=== PATIENT | male | born 1965 | race Caucasian/White ===

== ENCOUNTER 2019-01-21 19:31 | Inpatient (IN) | payer SELFPAY ==
[2019-01-21] VITALS (10 sets, daily range): BP systolic 89–148; BP diastolic 50–66; PULSE 85–98; RESP 16–24; TEMP 37.4–39.9; O2SAT 92–96; BMI 39.9
--- NOTE | 2019-01-21 19:54 | DI.US.S_ITS ---
PROCEDURE: US PERIPH VENOUS LOW EXTREM LT INDICATIONS: EDEMA, ERYTHEMA, PAIN TECHNIQUE: Real-time imaging, as well as color and pulse Doppler interrogation, were performed of the lower extremity deep veins from the inguinal ligament to the popliteal fossa. COMPARISON: None. FINDINGS: The deep veins are normally compressible, and free of intraluminal thrombus. Color and pulse Doppler demonstrate normal phasic intraluminal flow. There is normal augmentation response to distal compression maneuver. IMPRESSION: No deep vein thrombosis of the left lower extremity. Dictated by: Marisela Jones M.D. on 01/21/2019 at 20:54 Approved by: Marisela Jones M.D. on 01/21/2019 at 20:54
[2019-01-21] MEDS: SODIUM CHLORIDE 0.9% 1,000 ML 1000 ML IV ×2 (20:18→21:27)
[2019-01-21] MEDS: KETOROLAC 60 MG/2 ML VIAL 15 MG IV (20:19)
[2019-01-21] MEDS: VANCOMYCIN 2,000 MG in SODIUM CHLORIDE 0.9% 500 ML 250 ML IV (20:19)
[2019-01-21 20:20] LABS: Add Manual Diff / Slide Review NO; Basophils Absolute Auto 0 /uL (0-100); Basophils Percent Auto 0.1 % (0-2); Eosinophils Absolute Auto 0 /uL (0-450); Hematocrit 39.7 % (41-53); Hemoglobin 13.6 g/dL (13.5-17.5); Lymphocytes Absolute Auto 500 /uL (1100-4500); Lymphocytes Percent Auto 2.4 % (25-40); Mean Corpuscular HGB Conc 34.2 % (30-36); Mean Corpuscular Volume 96.3 fL (80-100); Monocytes Absolute Auto 600 /uL (0-900); Monocytes Percent Auto 2.8 % (3-14); Neutrophils Absolute Auto 19200 /uL (1500-7000); Neutrophils Percent Auto 94.7 % (50-75); Platelet Count 164 X10^3/uL (150-400); Red Blood Cell Count 4.12 X10^6/uL (4.5-5.9); Red Cell Distribution Width 14.2 % (11.6-14.8); White Blood Cell Count 20.3 X10^3/uL (4.5-11.0)
[2019-01-21 20:31] LABS: Alanine Aminotransferase 11 IU/L (21-72); Albumin 4.2 g/dL (3.5-5.0); Albumin Globulin Ratio 1.3 (1.0-2.8); Alkaline Phosphatase 69 U/L (38-126); Aspartate Aminotransferase 43 IU/L (17-59); BUN Creatinine Ratio 20.7 (6-22); Blood Urea Nitrogen 29 mg/dL (9-20); Calcium 8.6 mg/dL (8.4-10.2); Carbon Dioxide 24 mmol/L (22-32); Chloride 92 mmol/L (98-107); Estimated Glomerular Filt Rate 53.2 mL/min (>60); Globulin 3.3 g/dL (1.7-4.1); Glucose 174 mg/dL (70-100); HEMOLYSIS 27 (0-50); Lactate (Lactic Acid) 2.2 mmol/L (0.7-2.1); Potassium 3.8 mmol/L (3.4-5.1); Sodium 128 mmol/L (137-145); Total Protein 7.5 g/dL (6.3-8.2)
[2019-01-21 20:48] LABS: Procalcitonin 5.51 ng/mL (<0.5)
[2019-01-21 22:46] LABS: Appearance Urine UA CLEAR; Bilirubin Urine UA NEGATIVE (NEGATIVE); Color Urine UA YELLOW; Glucose Urine UA NEGATIVE (Negative); Ketones Urine UA NEGATIVE (NEGATIVE); Leukocyte Esterase Urine UA NEGATIVE (NEGATIVE); Nitrite Urine UA NEGATIVE (Negative); Occult Blood Urine UA 3+ (Negative); Protein Urine UA 1+ (Negative); Urobilinogen Urine UA 0.2 E.U./dL (0.2); pH Urine UA 5.5 (4.5-8.0)
--- NOTE | 2019-01-21 23:00 | PC.NURSE ---
Addendum entered by Jeannette Garcia R.N. 01/21/19 23:14: Discussed with Dr. Warren order for POC urinalysis from E.R. Verbal order to obtain urinalysis upon arrival to floor. Pt provided with ice water per Dr. Warren. to see patient. Pt currently resting quietly in bed with eyes closed. No signs of distress or discomfort. Original Note: Pt to room 212 from E.R. awake, alert, conversant and febrile. Warm to touch and flushed. Able to ambulate from stretcher to bed independently. States pain to LLE increases with limb in dependent position. LLE elevated on pillows x 2 while in bed. Normal saline bolus completed as begun in E.R. Vancomycin infusing as ordered without difficulty. Tele in place and ICU notified per motor coach supervisorDuyen. Continuous pulse oximeter in place. Pt's wallet secured in safe with pt permission and understanding. Clothing in belongings bag with one dime and two pennies in jeans pocket. Awaiting further orders per Dr. Warren who per motor coach supervisor report is in ICU at the present time. First void collected and sent to lab pending further orders.
[2019-01-21 23:04] LABS: RBC Urine 10-30/HPF (0-5/HPF); Squamous Epithelial Cell Urine 0-1 /HPF; WBC Urine 0-1/HPF (0-5/HPF)
[2019-01-21 23:05] LABS: Bacteria Urine Few (2-10); Culture Indicated Urine Cult Not Indicated
--- NOTE | 2019-01-21 23:20 | ED.FEVER ---
HPI - Fever General Chief Complaint: Fever Stated Complaint: LEFT LEG INFECTION Time Seen by Provider: 01/21/19 19:35 Source: patient Mode of arrival: ambulatory Limitations: no limitations History of Present Illness HPI Narrative: 53-year-old nonsmoker with history of TIA and prior cellulitis presents with 2 days of worsening left lower extremity swelling, pain and redness. It started at his left ankle and now extends all the way to his groin. He has had fever as high as 103. He denies any shaking but has had chills. He has had no chest pain, shortness of breath nor nausea. He is not dizzy nor weak or lightheaded. complaint: fever Onset (ago): hour(s) Maximum Temperature: 103 F Temperature Source: oral Associated symptoms: chills Relieving factors: nothing Exacerbating factors: other Treatments prior to arrival fever: acetaminophen and ibuprofen Related Data Home Medications Medication Instructions Recorded Confirmed No Known Home Medications 01/21/19 01/21/19 Allergies Allergy/AdvReac Type Severity Reaction Status Date / Time No Known Drug Allergies Allergy Verified 01/21/19 19:45 Review of Systems Constitutional Reports chills, Reports fever(s), Denies lethargy and Denies weakness Eyes Denies change in vision, Denies eye discharge, Denies irritation and Denies loss of vision ENT Ears, Nose, Mouth, and Throat: Denies change in voice, Denies neck pain and Denies sore throat Cardiovascular Denies chest pain, Denies irregular heart rhythm, Denies lightheadedness, Denies palpitations, Denies dyspnea, Denies dyspnea on exertion and Denies orthopnea Respiratory Denies cough, Denies dyspnea, Denies dyspnea on exertion and Denies wheezing Gastrointestinal Gastrointestinal: Denies abdominal pain, Denies change in bowel habits, Denies diarrhea, Denies nausea and Denies vomiting Genitourinary Denies hematuria, Denies flank pain, Denies urinary incontinence and Denies urinary urgency Musculoskeletal Denies neck pain Integumentary/Breasts Denies pruritus, Reports erythema, Denies rash, Reports skin pain, Reports skin swelling and Denies wounds Neurologic Denies confusion, Denies loss of vision and Denies weakness Psychiatric Denies anxiety, Denies confusion, Denies depression, Denies homicidal ideation and Denies suicidal ideation Endocrine Denies palpitations Hematologic/Lymphatic Denies easy bruising Allergic/Immunologic Denies wheezing PFSH Social History household members: children Smoking Status: Never smoker alcohol intake: current Social History household members: children Smoking Status: Never smoker alcohol intake: current Exam Narrative Exam Narrative: GENERAL: This is a well-nourished, well-developed patient, in mild distress. Obviously uncomfortable HEAD: Atraumatic. Normocephalic. No temporal or scalp tenderness. EYES: Pupils equal round and reactive. Extraocular motions intact. No scleral icterus. No injection or drainage. ENT: Nose without bleeding, purulent drainage or septal hematoma. Throat without erythema, tonsillar hypertrophy or exudate. Uvula midline. Airway patent. NECK: Trachea midline. No JVD or lymphadenopathy. Supple, nontender, no meningeal signs. CARDIOVASCULAR: Regular rate and rhythm without murmurs, gallops, or rubs. RESPIRATORY: Clear to auscultation. Breath sounds equal bilaterally. No wheezes, rales, or rhonchi. GASTROINTESTINAL: Abdomen soft, non-tender, nondistended. No hepato-splenomegaly, or palpable masses. No guarding. EXTREMITIES: marked erythema, swelling and tenderness starting with dorsum of foot including circumferentially below the knee and medial thigh. there seems to be what might be a small skin break on the medial aspect of the ankle BACK: Nontender without deformity or crepitance. No flank tenderness. NEURO: AOx3. SKIN: warm pink and dry other than left extremity which is erythematous, see extremity exam above Initial Vital Signs Initial Vital Signs: Vital Signs Temperature 103.9 F H 01/21/19 19:42 Pulse Rate 98 H 01/21/19 19:42 Respiratory Rate 24 01/21/19 19:42 Blood Pressure 136/66 01/21/19 19:42 Pulse Oximetry 96 01/21/19 19:42 Course Orders Ordered: ED Orders 01/21/19 19:54 US periph venous low extrem lt Stat 01/21/19 20:00 Complete Blood Count AUTO DIFF Stat Comprehensive Metabolic Panel Stat Lactate (Lactic Acid) Stat Procalcitonin Stat 01/21/19 20:20 Blood Culture Stat 01/21/19 22:27 Consult to Machinist Linotype Routine 01/21/19 22:30 Urinalysis and Microscopic Routine 01/21/19 23:12 Education, smoking cessation ONGOING 01/21/19 23:18 Urinalysis and Microscopic Urgent 01/22/19 05:00 Basic Metabolic Panel Routine Complete Blood Count AUTO DIFF Routine Acetaminophen (Tylenol) 650 mg PO Q4HR PRN PRN Reason: As Needed for Fever/Mild Pain Enoxaparin Sodium (Lovenox) 30 mg SUBCUT DAILY [facility] Levofloxacin (Levaquin) 500 mg in 100 mls @ 100 mls/hr IV NOW ONE Stop: 01/22/19 00:13 Sodium Chloride (Normal Saline 0.9%) 1,000 mls @ 125 mls/hr IV CONT CHRIS Vancomycin HCl (Vancomycin Per Pharmacy) 1 request MISC NOW ONE Stop: 01/21/19 23:16 Discontinued Medications Sodium Chloride (Normal Saline 0.9%) 1,000 mls @ 1,000 mls/hr IV BOLUS ONE Stop: 01/21/19 20:55 Last Admin: 01/21/19 20:18 Dose: 1,000 mls/hr Vancomycin HCl 2,000 mg/ (Sodium Chloride) 500 mls @ 250 mls/hr IV NOW ONE Stop: 01/21/19 19:55 Last Admin: 01/21/19 20:19 Dose: 250 mls/hr Sodium Chloride (Normal Saline 0.9%) 1,000 mls @ 1,000 mls/hr IV BOLUS ONE Stop: 01/21/19 22:20 Last Admin: 01/21/19 21:27 Dose: 1,000 mls/hr Ketorolac Tromethamine (Toradol) 15 mg IV NOW ONE Stop: 01/21/19 19:55 Last Admin: 01/21/19 20:19 Dose: 15 mg Consultations Consultation #1: Dr. Warren happy to accept patient on hospitalist service Vital Signs - 8 hr 01/21/19 19:42 01/21/19 19:52 01/21/19 20:19 Temperature 103.9 F H 103.9 F H Pulse Rate 98 H 96 H Respiratory Rate 24 22 Blood Pressure 136/66 Blood Pressure [Left Arm] 148/65 H Pulse Oximetry 96 95 01/21/19 20:30 01/21/19 21:07 01/21/19 21:15 Temperature 102.1 F H Pulse Rate 89 87 87 Respiratory Rate 16 23 18 Blood Pressure Blood Pressure [Left Arm] 111/51 L 89/51 L 104/50 L Pulse Oximetry 95 92 95 01/21/19 21:16 01/21/19 21:30 01/21/19 22:20 Temperature 102.1 F H 101.3 F H Pulse Rate 86 86 Respiratory Rate 24 18 Blood Pressure 109/59 L Blood Pressure [Left Arm] 102/54 L Pulse Oximetry 93 95 MDM - Fever Medical Records Attestation: I reviewed the patient's medical records. Lab Data Result diagrams: 01/21/19 20:00 01/21/19 20:00 Lab Results 01/21/19 01/21/19 01/21/19 Range/Units 20:00 20:00 20:00 WBC 20.3 H (4.5-11.0) X10^3/uL RBC 4.12 L (4.5-5.9) X10^6/uL Hgb 13.6 (13.5-17.5) g/dL Hct 39.7 L (41-53) % MCV 96.3 (80-100) fL MCH 33.0 (26-34) PG MCHC 34.2 (30-36) % RDW 14.2 (11.6-14.8) % Plt Count 164 (150-400) X10^3/uL Neut % (Auto) 94.7 H (50-75) % Lymph % (Auto) 2.4 L (25-40) % [place] % (Auto) 2.8 L (3-14) % Eos % (Auto) 0.0 L (2-4) % Baso % (Auto) 0.1 (0-2) % Neut # (Auto) 23915 H (6438-5857) /uL Lymph # (Auto) 500 L (0206-5232) /uL [place] # (Auto) 600 (0-900) /uL Eos # (Auto) 0 (0-450) /uL Baso # (Auto) 0 (0-100) /uL Sodium 128 L (137-145) mmol/L Potassium 3.8 (3.4-5.1) mmol/L Chloride 92 L (98-107) mmol/L Carbon Dioxide 24 (22-32) mmol/L BUN 29 H (9-20) mg/dL Creatinine 1.40 H (0.66-1.25) mg/dL Estimated GFR 53.2 L (>60) mL/min BUN/Creatinine Ratio 20.7 (6-22) Glucose 174 H (70-100) mg/dL Lactate (0.7-2.1) mmol/L Calcium 8.6 (8.4-10.2) mg/dL Total Bilirubin 2.0 H (0.2-1.3) mg/dL AST 43 (17-59) IU/L ALT 11 L (21-72) IU/L Alkaline Phosphatase 69 (38-126) U/L Total Protein 7.5 (6.3-8.2) g/dL Albumin 4.2 (3.5-5.0) g/dL Globulin 3.3 (1.7-4.1) g/dL Albumin/Globulin Ratio 1.3 (1.0-2.8) Procalcitonin 5.51 H (<0.5) ng/mL Urine Color Urine Appearance Urine pH (4.5-8.0) Ur Specific [place] (1.000-1.035) Urine Protein (Negative) Urine Glucose (UA) (Negative) g/dL Urine Ketones (NEGATIVE) Urine Occult Blood (Negative) Urine Nitrate (Negative) Urine Bilirubin (NEGATIVE) Urine Urobilinogen (0.2) E.U./dL Ur Leukocyte Esterase (NEGATIVE) Urine RBC (0-5/HPF) Urine WBC (0-5/HPF) Ur Squamous Epith Cells Urine Bacteria (None) Ur Culture Indicated? 01/21/19 01/21/19 Range/Units 20:00 22:30 WBC (4.5-11.0) X10^3/uL RBC (4.5-5.9) X10^6/uL Hgb (13.5-17.5) g/dL Hct (41-53) % MCV (80-100) fL MCH (26-34) PG MCHC (30-36) % RDW (11.6-14.8) % Plt Count (150-400) X10^3/uL Neut % (Auto) (50-75) % Lymph % (Auto) (25-40) % [place] % (Auto) (3-14) % Eos % (Auto) (2-4) % Baso % (Auto) (0-2) % Neut # (Auto) (7481-9769) /uL Lymph # (Auto) (3755-3428) /uL [place]ax # (Auto) (0-900) /uL Eos # (Auto) (0-450) /uL Baso # (Auto) (0-100) /uL Sodium (137-145) mmol/L Potassium (3.4-5.1) mmol/L Chloride (98-107) mmol/L Carbon Dioxide (22-32) mmol/L BUN (9-20) mg/dL Creatinine (0.66-1.25) mg/dL Estimated GFR (>60) mL/min BUN/Creatinine Ratio (6-22) Glucose (70-100) mg/dL Lactate 2.2 H (0.7-2.1) mmol/L Calcium (8.4-10.2) mg/dL Total Bilirubin (0.2-1.3) mg/dL AST (17-59) IU/L ALT (21-72) IU/L Alkaline Phosphatase (38-126) U/L Total Protein (6.3-8.2) g/dL Albumin (3.5-5.0) g/dL Globulin (1.7-4.1) g/dL Albumin/Globulin Ratio (1.0-2.8) Procalcitonin (<0.5) ng/mL Urine Color Yellow Urine Appearance Clear Urine pH 5.5 (4.5-8.0) Ur Specific [place] 1.010 (1.000-1.035) Urine Protein 1+ H (Negative) Urine Glucose (UA) Negative (Negative) g/dL Urine Ketones Negative (NEGATIVE) Urine Occult Blood 3+ H (Negative) Urine Nitrate Negative (Negative) Urine Bilirubin Negative (NEGATIVE) Urine Urobilinogen 0.2 (0.2) E.U./dL Ur Leukocyte Esterase Negative (NEGATIVE) Urine RBC 10-30/hpf H (0-5/HPF) Urine WBC 0-1/hpf (0-5/HPF) Ur Squamous Epith Cells 0-1 /hpf Urine Bacteria Few (2-10) H (None) Ur Culture Indicated? Cult not indicated Imaging Data Venous US: Radiologist's impression: [address] [id number] Ultrasound Report Signed Patient: Justin Birch [facility]#: [id number] : 1965Acct:[id number] Age/Sex: 53 / MDate of Service: 01/21/19 Loc: ED Accession Number: [id number] Procedure: US periph venous low extrem lt Ordering Provider: Jose D Lopze D.O. PROCEDURE: US PERIPH VENOUS LOW EXTREM LT INDICATIONS: EDEMA, ERYTHEMA, PAIN TECHNIQUE: Real-time imaging, as well as color and pulse Doppler interrogation, were performed of the lower extremity deep veins from the inguinal ligament to the popliteal fossa. COMPARISON: None. FINDINGS: The deep veins are normally compressible, and free of intraluminal thrombus. Color and pulse Doppler demonstrate normal phasic intraluminal flow. There is normal augmentation response to distal compression maneuver. IMPRESSION: No deep vein thrombosis of the left lower extremity. Dictated by: Marisela Jones M.D. on 01/21/2019 at 20:54 Approved by: Marisela Jones M.D. on 01/21/2019 at 20:54 [facility] Narrative Medical decision making narrative: patient has rapidly worsening lower extremity cellulitis involving most of his left leg. He has significantly elevated white count and lactate of 2.2. Patient will require IV antibiotics and likely a few days worth of treatment and stabilization Discharge Plan Departure Patient Disposition: Admitted As Inpatient Clinical Impression: Cellulitis Qualifiers: Site of cellulitis: extremity Site of cellulitis of extremity: lower extremity Laterality: left Qualified Code(s): L03.116 - Cellulitis of left lower limb Discharge Date/Time: 01/21/19 22:00 Interventions: ED Discharge Assessment Last Done: 01/21/19 22:03 Admit Date/Time: 01/21/19 21:40 Admit Provider: Lupe Warren
--- NOTE | 2019-01-21 23:24 | ED_ITS ---
HPI - Fever General Chief Complaint: Fever Stated Complaint: LEFT LEG INFECTION Time Seen by Provider: 01/21/19 19:35 Source: patient Mode of arrival: ambulatory Limitations: no limitations History of Present Illness HPI Narrative: 53-year-old nonsmoker with history of TIA and prior cellulitis presents with 2 days of worsening left lower extremity swelling, pain and redness. It started at his left ankle and now extends all the way to his groin. He has had fever as high as 103. He denies any shaking but has had chills. He has had no chest pain, shortness of breath nor nausea. He is not dizzy nor weak or lightheaded. complaint: fever Onset (ago): hour(s) Maximum Temperature: 103 F Temperature Source: oral Associated symptoms: chills Relieving factors: nothing Exacerbating factors: other Treatments prior to arrival fever: acetaminophen and ibuprofen Related Data Home Medications Medication Instructions Recorded Confirmed No Known Home Medications 01/21/19 01/21/19 Allergies Allergy/AdvReac Type Severity Reaction Status Date / Time No Known Drug Allergies Allergy Verified 01/21/19 19:45 Review of Systems Constitutional Reports chills, Reports fever(s), Denies lethargy and Denies weakness Eyes Denies change in vision, Denies eye discharge, Denies irritation and Denies loss of vision ENT Ears, Nose, Mouth, and Throat: Denies change in voice, Denies neck pain and Denies sore throat Cardiovascular Denies chest pain, Denies irregular heart rhythm, Denies lightheadedness, Denies palpitations, Denies dyspnea, Denies dyspnea on exertion and Denies orthopnea Respiratory Denies cough, Denies dyspnea, Denies dyspnea on exertion and Denies wheezing Gastrointestinal Gastrointestinal: Denies abdominal pain, Denies change in bowel habits, Denies diarrhea, Denies nausea and Denies vomiting Genitourinary Denies hematuria, Denies flank pain, Denies urinary incontinence and Denies urinary urgency Musculoskeletal Denies neck pain Integumentary/Breasts Denies pruritus, Reports erythema, Denies rash, Reports skin pain, Reports skin swelling and Denies wounds Neurologic Denies confusion, Denies loss of vision and Denies weakness Psychiatric Denies anxiety, Denies confusion, Denies depression, Denies homicidal ideation and Denies suicidal ideation Endocrine Denies palpitations Hematologic/Lymphatic Denies easy bruising Allergic/Immunologic Denies wheezing PFSH Social History household members: children Smoking Status: Never smoker alcohol intake: current Social History household members: children Smoking Status: Never smoker alcohol intake: current Exam Narrative Exam Narrative: GENERAL: This is a well-nourished, well-developed patient, in mild distress. Obviously uncomfortable HEAD: Atraumatic. Normocephalic. No temporal or scalp tenderness. EYES: Pupils equal round and reactive. Extraocular motions intact. No scleral icterus. No injection or drainage. ENT: Nose without bleeding, purulent drainage or septal hematoma. Throat without erythema, tonsillar hypertrophy or exudate. Uvula midline. Airway patent. NECK: Trachea midline. No JVD or lymphadenopathy. Supple, nontender, no meningeal signs. CARDIOVASCULAR: Regular rate and rhythm without murmurs, gallops, or rubs. RESPIRATORY: Clear to auscultation. Breath sounds equal bilaterally. No wheezes, rales, or rhonchi. GASTROINTESTINAL: Abdomen soft, non-tender, nondistended. No hepato- splenomegaly, or palpable masses. No guarding. EXTREMITIES: marked erythema, swelling and tenderness starting with dorsum of foot including circumferentially below the knee and medial thigh. there seems to be what might be a small skin break on the medial aspect of the ankle BACK: Nontender without deformity or crepitance. No flank tenderness. NEURO: AOx3. SKIN: warm pink and dry other than left extremity which is erythematous, see extremity exam above Initial Vital Signs Initial Vital Signs: Vital Signs Temperature 103.9 F H 01/21/19 19:42 Pulse Rate 98 H 01/21/19 19:42 Respiratory Rate 24 01/21/19 19:42 Blood Pressure 136/66 01/21/19 19:42 Pulse Oximetry 96 01/21/19 19:42 Course Orders Ordered: ED Orders 01/21/19 19:54 US periph venous low extrem lt Stat 01/21/19 20:00 Complete Blood Count AUTO DIFF Stat Comprehensive Metabolic Panel Stat Lactate (Lactic Acid) Stat Procalcitonin Stat 01/21/19 20:20 Blood Culture Stat 01/21/19 22:27 Consult to Wiring Technician Routine 01/21/19 22:30 Urinalysis and Microscopic Routine 01/21/19 23:12 Education, smoking cessation ONGOING 01/21/19 23:18 Urinalysis and Microscopic Urgent 01/22/19 05:00 Basic Metabolic Panel Routine Complete Blood Count AUTO DIFF Routine Acetaminophen (Tylenol) 650 mg PO Q4HR PRN PRN Reason: As Needed for Fever/Mild Pain Enoxaparin Sodium (Lovenox) 30 mg SUBCUT DAILY [facility] Levofloxacin (Levaquin) 500 mg in 100 mls @ 100 mls/hr IV NOW ONE Stop: 01/22/19 00:13 Sodium Chloride (Normal Saline 0.9%) 1,000 mls @ 125 mls/hr IV CONT CHRIS Vancomycin HCl (Vancomycin Per Pharmacy) 1 request MISC NOW ONE Stop: 01/21/19 23:16 Discontinued Medications Sodium Chloride (Normal Saline 0.9%) 1,000 mls @ 1,000 mls/hr IV BOLUS ONE Stop: 01/21/19 20:55 Last Admin: 01/21/19 20:18 Dose: 1,000 mls/hr Vancomycin HCl 2,000 mg/ (Sodium Chloride) 500 mls @ 250 mls/hr IV NOW ONE Stop: 01/21/19 19:55 Last Admin: 01/21/19 20:19 Dose: 250 mls/hr Sodium Chloride (Normal Saline 0.9%) 1,000 mls @ 1,000 mls/hr IV BOLUS ONE Stop: 01/21/19 22:20 Last Admin: 01/21/19 21:27 Dose: 1,000 mls/hr Ketorolac Tromethamine (Toradol) 15 mg IV NOW ONE Stop: 01/21/19 19:55 Last Admin: 01/21/19 20:19 Dose: 15 mg Consultations Consultation #1: Dr. Warren happy to accept patient on hospitalist service Vital Signs - 8 hr 01/21/19 19:42 01/21/19 19:52 01/21/19 20:19 Temperature 103.9 F H 103.9 F H Pulse Rate 98 H 96 H Respiratory Rate 24 22 Blood Pressure 136/66 Blood Pressure [Left Arm] 148/65 H Pulse Oximetry 96 95 01/21/19 20:30 01/21/19 21:07 01/21/19 21:15 Temperature 102.1 F H Pulse Rate 89 87 87 Respiratory Rate 16 23 18 Blood Pressure Blood Pressure [Left Arm] 111/51 L 89/51 L 104/50 L Pulse Oximetry 95 92 95 01/21/19 21:16 01/21/19 21:30 01/21/19 22:20 Temperature 102.1 F H 101.3 F H Pulse Rate 86 86 Respiratory Rate 24 18 Blood Pressure 109/59 L Blood Pressure [Left Arm] 102/54 L Pulse Oximetry 93 95 MDM - Fever Medical Records Attestation: I reviewed the patient's medical records. Lab Data Result diagrams: 01/21/19 20:00 01/21/19 20:00 Lab Results 01/21/19 01/21/19 01/21/19 Range/Units 20:00 20:00 20:00 WBC 20.3 H (4.5-11.0) X10^3/uL RBC 4.12 L (4.5-5.9) X10^6/uL Hgb 13.6 (13.5-17.5) g/dL Hct 39.7 L (41-53) % MCV 96.3 (80-100) fL MCH 33.0 (26-34) PG MCHC 34.2 (30-36) % RDW 14.2 (11.6-14.8) % Plt Count 164 (150-400) X10^3/uL Neut % (Auto) 94.7 H (50-75) % Lymph % (Auto) 2.4 L (25-40) % [place] % (Auto) 2.8 L (3-14) % Eos % (Auto) 0.0 L (2-4) % Baso % (Auto) 0.1 (0-2) % Neut # (Auto) 18717 H (9039-5885) /uL Lymph # (Auto) 500 L (4434-3121) /uL [place] # (Auto) 600 (0-900) /uL Eos # (Auto) 0 (0-450) /uL Baso # (Auto) 0 (0-100) /uL Sodium 128 L (137-145) mmol/L Potassium 3.8 (3.4-5.1) mmol/L Chloride 92 L (98-107) mmol/L Carbon Dioxide 24 (22-32) mmol/L BUN 29 H (9-20) mg/dL Creatinine 1.40 H (0.66-1.25) mg/dL Estimated GFR 53.2 L (>60) mL/min BUN/Creatinine Ratio 20.7 (6-22) Glucose 174 H (70-100) mg/dL Lactate (0.7-2.1) mmol/L Calcium 8.6 (8.4-10.2) mg/dL Total Bilirubin 2.0 H (0.2-1.3) mg/dL AST 43 (17-59) IU/L ALT 11 L (21-72) IU/L Alkaline Phosphatase 69 (38-126) U/L Total Protein 7.5 (6.3-8.2) g/dL Albumin 4.2 (3.5-5.0) g/dL Globulin 3.3 (1.7-4.1) g/dL Albumin/Globulin Ratio 1.3 (1.0-2.8) Procalcitonin 5.51 H (<0.5) ng/mL Urine Color Urine Appearance Urine pH (4.5-8.0) Ur Specific [place] (1.000-1.035) Urine Protein (Negative) Urine Glucose (UA) (Negative) g/dL Urine Ketones (NEGATIVE) Urine Occult Blood (Negative) Urine Nitrate (Negative) Urine Bilirubin (NEGATIVE) Urine Urobilinogen (0.2) E.U./dL Ur Leukocyte Esterase (NEGATIVE) Urine RBC (0-5/HPF) Urine WBC (0-5/HPF) Ur Squamous Epith Cells Urine Bacteria (None) Ur Culture Indicated? 01/21/19 01/21/19 Range/Units 20:00 22:30 WBC (4.5-11.0) X10^3/uL RBC (4.5-5.9) X10^6/uL Hgb (13.5-17.5) g/dL Hct (41-53) % MCV (80-100) fL MCH (26-34) PG MCHC (30-36) % RDW (11.6-14.8) % Plt Count (150-400) X10^3/uL Neut % (Auto) (50-75) % Lymph % (Auto) (25-40) % [place] % (Auto) (3-14) % Eos % (Auto) (2-4) % Baso % (Auto) (0-2) % Neut # (Auto) (4391-3108) /uL Lymph # (Auto) (1887-0781) /uL [place] # (Auto) (0-900) /uL Eos # (Auto) (0-450) /uL Baso # (Auto) (0-100) /uL Sodium (137-145) mmol/L Potassium (3.4-5.1) mmol/L Chloride (98-107) mmol/L Carbon Dioxide (22-32) mmol/L BUN (9-20) mg/dL Creatinine (0.66-1.25) mg/dL Estimated GFR (>60) mL/min BUN/Creatinine Ratio (6-22) Glucose (70-100) mg/dL Lactate 2.2 H (0.7-2.1) mmol/L Calcium (8.4-10.2) mg/dL Total Bilirubin (0.2-1.3) mg/dL AST (17-59) IU/L ALT (21-72) IU/L Alkaline Phosphatase (38-126) U/L Total Protein (6.3-8.2) g/dL Albumin (3.5-5.0) g/dL Globulin (1.7-4.1) g/dL Albumin/Globulin Ratio (1.0-2.8) Procalcitonin (<0.5) ng/mL Urine Color Yellow Urine Appearance Clear Urine pH 5.5 (4.5-8.0) Ur Specific [place] 1.010 (1.000-1.035) Urine Protein 1+ H (Negative) Urine Glucose (UA) Negative (Negative) g/dL Urine Ketones Negative (NEGATIVE) Urine Occult Blood 3+ H (Negative) Urine Nitrate Negative (Negative) Urine Bilirubin Negative (NEGATIVE) Urine Urobilinogen 0.2 (0.2) E.U./dL Ur Leukocyte Esterase Negative (NEGATIVE) Urine RBC 10-30/hpf H (0-5/HPF) Urine WBC 0-1/hpf (0-5/HPF) Ur Squamous Epith Cells 0-1 /hpf Urine Bacteria Few (2-10) H (None) Ur Culture Indicated? Cult not indicated Imaging Data Venous US: Radiologist's impression: [address] [id number] Ultrasound Report Signed Patient: Justin Birch [facility]#: [id number] : 1965Acct:[id number] Age/Sex: 53 / MDate of Service: 01/21/19 Loc: ED Accession Number: [id number] Procedure: US periph venous low extrem lt Ordering Provider: Jose D Lopez D.O. PROCEDURE: US PERIPH VENOUS LOW EXTREM LT INDICATIONS: EDEMA, ERYTHEMA, PAIN TECHNIQUE: Real-time imaging, as well as color and pulse Doppler interrogation, were performed of the lower extremity deep veins from the inguinal ligament to the popliteal fossa. COMPARISON: None. FINDINGS: The deep veins are normally compressible, and free of intraluminal thrombus. Color and pulse Doppler demonstrate normal phasic intraluminal flow. There is normal augmentation response to distal compression maneuver. IMPRESSION: No deep vein thrombosis of the left lower extremity. Dictated by: Marisela Jones M.D. on 01/21/2019 at 20:54 Approved by: Marisela Jones M.D. on 01/21/2019 at 20:54 [facility] Narrative Medical decision making narrative: patient has rapidly worsening lower extremity cellulitis involving most of his left leg. He has significantly elevated white count and lactate of 2.2. Patient will require IV antibiotics and likely a few days worth of treatment and stabilization Discharge Plan Departure Patient Disposition: Admitted As Inpatient Clinical Impression: Cellulitis Qualifiers: Site of cellulitis: extremity Site of cellulitis of extremity: lower extremity Laterality: left Qualified Code(s): L03.116 - Cellulitis of left lower limb Discharge Date/Time: 01/21/19 22:00 Interventions: ED Discharge Assessment Last Done: 01/21/19 22:03 Admit Date/Time: 01/21/19 21:40 Admit Provider: Lupe Warren
--- NOTE | 2019-01-21 23:28 | PM.HP.1 ---
History of Present Illness Date Patient Seen: 01/21/19 Time Patient Seen: 11:20 Chief complaint: LEFT LEG INFECTION Narrative: 53-year-old former patient of Dr. Oliveros who presented to the [facility] Emergency room this evening for left foot and lower leg pain and swelling, fever and chills for 2 days. He started noticing a skin breakdown on the medial aspect of left foot about 2 days ago. He has mild discomfort in the area. He also noticed redness and swelling in the surrounding soft tissue. He also has been having fevers and chills. His temp went up to 103. Today the redness and swelling progressed to his left lower leg. He was diagnosed with left lower extremity cellulitis. He received IV vancomycin and was admitted to the medicine floor for left lower extremity cellulitis. Patient History Medical History Cellulitis and abscess of foot (Acute) Mandible fracture (Acute) Social History household members: children Smoking Status: Never smoker alcohol intake: current Family & Social History Social History: household members children Prior Living Arrangements House Safety & Behavioral: Feels Safe in Current Yes Environment Been Physically Hurt or No Threatened By a Person Suicidal Ideation Description None Suicide Plan Description No Plan Tobacco & Substance use: Smoking Status Never smoker alcohol intake current alcohol intake frequency 3 or more drinks per week Substance Use Type does not use Meds Home Medications Medication Instructions Recorded Confirmed Type No Known Home Medications 01/21/19 01/21/19 History Allergies Allergy/AdvReac Type Severity Reaction Status Date / Time No Known Drug Allergies Allergy Verified 01/21/19 19:45 Review of Systems Constitutional Constitutional: Reports chills and Reports fever(s) Cardiovascular Comments: Denies chest pain Respiratory Comments: Denies cough or shortness of breath Gastrointestinal Comments: Denies abdominal pain Genitourinary Comments: No dysuria Exam Vital Signs (past 8 hours): - 01/21/19 19:42 01/21/19 19:52 01/21/19 20:19 Temperature 103.9 F H 103.9 F H Pulse Rate 98 H 96 H Respiratory Rate 24 22 Blood Pressure 136/66 Blood Pressure [Left Arm] 148/65 H Pulse Oximetry 96 95 01/21/19 20:30 01/21/19 21:07 01/21/19 21:15 Temperature 102.1 F H Pulse Rate 89 87 87 Respiratory Rate 16 23 18 Blood Pressure Blood Pressure [Left Arm] 111/51 L 89/51 L 104/50 L Pulse Oximetry 95 92 95 01/21/19 21:16 01/21/19 21:30 01/21/19 22:20 Temperature 102.1 F H 101.3 F H Pulse Rate 86 86 Respiratory Rate 24 18 Blood Pressure 109/59 L Blood Pressure [Left Arm] 102/54 L Pulse Oximetry 93 95 Oxygen Delivery Method Room Air Narrative Exam Narrative: GENERAL: Well-appearing, well-nourished and in no acute distress. HEENT: Head normocephalic, atraumatic. Eyes pupils equal round NECK: Supple, no JVD, CHEST: Breath sounds equal bilaterally, no wheezes rales or rhonchi. CARDIAC: Regular rate and rhythm without murmurs, rubs or gallops. ABDOMEN: Soft, nontender. Normoactive bowel sounds all 4 quadrants. No guarding or rebound. EXTREMITIES: Left foot has a small open wound on the medial aspect of the left heel. There is erythema and soft tissue swelling on the left foot extending to the left lower leg up to about half of the left lower leg. NEUROLOGICAL: Alert and oriented; Normal muscle strength. SKIN: Warm, dry, no petechiae, Objective Labs Result Diagrams: 01/21/19 20:00 01/21/19 20:00 Labs: Laboratory Results - last 24 hr 01/21/19 01/21/19 01/21/19 20:00 20:00 20:00 WBC 20.3 H RBC 4.12 L Hgb 13.6 Hct 39.7 L MCV 96.3 MCH 33.0 MCHC 34.2 RDW 14.2 Plt Count 164 Neut % (Auto) 94.7 H Lymph % (Auto) 2.4 L [place] % (Auto) 2.8 L Eos % (Auto) 0.0 L Baso % (Auto) 0.1 Neut # (Auto) 13957 H Lymph # (Auto) 500 L [place] # (Auto) 600 Eos # (Auto) 0 Baso # (Auto) 0 Sodium 128 L Potassium 3.8 Chloride 92 L Carbon Dioxide 24 BUN 29 H Creatinine 1.40 H Estimated GFR 53.2 L BUN/Creatinine Ratio 20.7 Glucose 174 H Lactate Calcium 8.6 Total Bilirubin 2.0 H AST 43 ALT 11 L Alkaline Phosphatase 69 Total Protein 7.5 Albumin 4.2 Globulin 3.3 Albumin/Globulin Ratio 1.3 Procalcitonin 5.51 H Urine Color Urine Appearance Urine pH Ur Specific [place] Urine Protein Urine Glucose (UA) Urine Ketones Urine Occult Blood Urine Nitrate Urine Bilirubin Urine Urobilinogen Ur Leukocyte Esterase Urine RBC Urine WBC Ur Squamous Epith Cells Urine Bacteria Ur Culture Indicated? 01/21/19 01/21/19 20:00 22:30 WBC RBC Hgb Hct MCV MCH MCHC RDW Plt Count Neut % (Auto) Lymph % (Auto) [place] % (Auto) Eos % (Auto) Baso % (Auto) Neut # (Auto) Lymph # (Auto) [place] # (Auto) Eos # (Auto) Baso # (Auto) Sodium Potassium Chloride Carbon Dioxide BUN Creatinine Estimated GFR BUN/Creatinine Ratio Glucose Lactate 2.2 H Calcium Total Bilirubin AST ALT Alkaline Phosphatase Total Protein Albumin Globulin Albumin/Globulin Ratio Procalcitonin Urine Color Yellow Urine Appearance Clear Urine pH 5.5 Ur Specific [place] 1.010 Urine Protein 1+ H Urine Glucose (UA) Negative Urine Ketones Negative Urine Occult Blood 3+ H Urine Nitrate Negative Urine Bilirubin Negative Urine Urobilinogen 0.2 Ur Leukocyte Esterase Negative Urine RBC 10-30/hpf H Urine WBC 0-1/hpf Ur Squamous Epith Cells 0-1 /hpf Urine Bacteria Few (2-10) H Ur Culture Indicated? Cult not indicated Assessment & Plan Assessment & Plan narrative: 1. Left lower extremity acute bacterial cellulitis: Continue IV vancomycin. We will also add IV Levaquin for gram-negative coverage. 2. Early sepsis: Patient has fever of 103, tachycardia, leukocytosis with white blood cell count of greater than 20,000, malaise, impaired renal function. We will treat the underlying cause. Continue IV normal saline at 125 cc an hour. 3. Acute kidney injury: His baseline renal function was normal. Creatinine is 1.4 today. Acute kidney injury is likely secondary to sepsis and possible dehydration. We will continue IV hydration. Continue monitor his renal function.
[2019-01-22] VITALS (10 sets, daily range): BP systolic 118–144; BP diastolic 53–78; PULSE 79–90; RESP 16–20; TEMP 36.6–38.6; O2SAT 92–98
[2019-01-22] MEDS: ENOXAPARIN 30 MG/0.3 ML SYRINGE SUBCUT ×2 (00:03→08:33)
[2019-01-22] MEDS: levoFLOXacin 500 MG/100 ML PIGGYBACK 100 MG IV ×2 (00:04→11:41)
[2019-01-22 00:10] LABS: Reflexed Lactate in 2 Hours Y
[2019-01-22 01:34] LABS: Lactate 2HR (Lactic Acid Rflx) 0.8 mmol/L (0.7-2.1)
[2019-01-22] MEDS: SODIUM CHLORIDE 0.9% 1,000 ML 125 ML IV ×2 (03:02→18:00)
[2019-01-22] MEDS: ACETAMINOPHEN 325 MG TABLET 650 MG PO ×3 (03:34→16:08)
[2019-01-22] MEDS: VANCOMYCIN 2,000 MG in SODIUM CHLORIDE 0.9% 500 ML 250 ML IV (04:12)
[2019-01-22 05:47] LABS: Hematocrit 36.2 % (41-53); Hemoglobin 12.1 g/dL (13.5-17.5); Mean Corpuscular HGB Conc 33.5 % (30-36); Mean Corpuscular Hemoglobin 32.6 PG (26-34); Mean Corpuscular Volume 97.2 fL (80-100); Platelet Count 137 X10^3/uL (150-400); Red Blood Cell Count 3.72 X10^6/uL (4.5-5.9); Red Cell Distribution Width 14.2 % (11.6-14.8); White Blood Cell Count 17.5 X10^3/uL (4.5-11.0)
[2019-01-22 05:48] LABS: Add Manual Diff / Slide Review YES
[2019-01-22 05:57] LABS: BUN Creatinine Ratio 21.5 (6-22); Blood Urea Nitrogen 28 mg/dL (9-20); Calcium 7.4 mg/dL (8.4-10.2); Carbon Dioxide 23 mmol/L (22-32); Chloride 99 mmol/L (98-107); Glucose 119 mg/dL (70-100); HEMOLYSIS 38 (0-50); Potassium 3.7 mmol/L (3.4-5.1); Sodium 129 mmol/L (137-145)
[2019-01-22 06:54] LABS: Toxic Granulation Present
[2019-01-22 07:51] LABS: Hemoglobin A1C% w Est Avg Glu 5.4 % (4.0-6.0)
--- NOTE | 2019-01-22 11:07 | PM.PN.1 ---
Subjective Date Patient Seen: 01/22/19 Time Patient Seen: 11:07 Interval history: Seen today to follow up the left leg cellulitis, possible early sepsis, hyperglycemia, hyponatremia, leukocytosis, hyperbilirubinemia. His procalcitonin was very high at 5.51. His white blood count has come down from 20.3 to 17.5. His bilirubin is high at 2.0. He has received vancomycin and Levaquin which will be extended. His temperature was 101.1?. Exam Vital Signs (past 8 hours): - 01/22/19 03:12 01/22/19 03:34 01/22/19 05:00 Temperature 101.4 F H 101.4 F H 101.1 F H Pulse Rate 86 86 Respiratory Rate 16 16 Blood Pressure 122/65 122/65 Pulse Oximetry 97 97 01/22/19 08:25 01/22/19 08:28 Temperature 98.8 F Pulse Rate 86 Respiratory Rate 17 Blood Pressure 121/53 L Pulse Oximetry 97 98 Oxygen Delivery Method Room Air Oxygen Flow Rate 0 Narrative Exam Narrative: He is alert, oriented x3, and in no apparent distress. Heart is regular rate and rhythm without murmur. Lungs are clear to auscultation bilaterally. There is no ankle edema. There is a healing burn scab on the PIP knuckle of the left index finger. The left leg and foot is diffusely swollen and pink with a purple area and a scab on the back of the heel where the infection appears to have started. Objective Labs Result Diagrams: 01/22/19 05:25 01/22/19 05:25 Labs: Laboratory Results - last 24 hr 01/21/19 01/21/19 01/21/19 20:00 20:00 20:00 WBC 20.3 H RBC 4.12 L Hgb 13.6 Hct 39.7 L MCV 96.3 MCH 33.0 MCHC 34.2 RDW 14.2 Plt Count 164 Neut % (Auto) 94.7 H Lymph % (Auto) 2.4 L [place] % (Auto) 2.8 L Eos % (Auto) 0.0 L Baso % (Auto) 0.1 Neut # (Auto) 02863 H Lymph # (Auto) 500 L [place] # (Auto) 600 Eos # (Auto) 0 Baso # (Auto) 0 Seg Neutrophils % Band Neutrophils % Lymphocytes % (Manual) Monocytes % (Manual) Metamyelocytes % Toxic Granulation RBC Morphology Sodium 128 L Potassium 3.8 Chloride 92 L Carbon Dioxide 24 BUN 29 H Creatinine 1.40 H Estimated GFR 53.2 L BUN/Creatinine Ratio 20.7 Glucose 174 H Hemoglobin A1c Lactate Calcium 8.6 Total Bilirubin 2.0 H AST 43 ALT 11 L Alkaline Phosphatase 69 Total Protein 7.5 Albumin 4.2 Globulin 3.3 Albumin/Globulin Ratio 1.3 Procalcitonin 5.51 H Urine Color Urine Appearance Urine pH Ur Specific [employer] Urine Protein Urine Glucose (UA) Urine Ketones Urine Occult Blood Urine Nitrate Urine Bilirubin Urine Urobilinogen Ur Leukocyte Esterase Urine RBC Urine WBC Ur Squamous Epith Cells Urine Bacteria Ur Culture Indicated? 01/21/19 01/21/19 01/22/19 20:00 22:30 01:15 WBC RBC Hgb Hct MCV MCH MCHC RDW Plt Count Neut % (Auto) Lymph % (Auto) [place] % (Auto) Eos % (Auto) Baso % (Auto) Neut # (Auto) Lymph # (Auto) [place] # (Auto) Eos # (Auto) Baso # (Auto) Seg Neutrophils % Band Neutrophils % Lymphocytes % (Manual) Monocytes % (Manual) Metamyelocytes % Toxic Granulation RBC Morphology Sodium Potassium Chloride Carbon Dioxide BUN Creatinine Estimated GFR BUN/Creatinine Ratio Glucose Hemoglobin A1c Lactate 2.2 H 0.8 Calcium Total Bilirubin AST ALT Alkaline Phosphatase Total Protein Albumin Globulin Albumin/Globulin Ratio Procalcitonin Urine Color Yellow Urine Appearance Clear Urine pH 5.5 Ur Specific [employer] 1.010 Urine Protein 1+ H Urine Glucose (UA) Negative Urine Ketones Negative Urine Occult Blood 3+ H Urine Nitrate Negative Urine Bilirubin Negative Urine Urobilinogen 0.2 Ur Leukocyte Esterase Negative Urine RBC 10-30/hpf H Urine WBC 0-1/hpf Ur Squamous Epith Cells 0-1 /hpf Urine Bacteria Few (2-10) H Ur Culture Indicated? Cult not indicated 01/22/19 01/22/19 01/22/19 05:25 05:25 05:27 WBC 17.5 H RBC 3.72 L Hgb 12.1 L Hct 36.2 L MCV 97.2 MCH 32.6 MCHC 33.5 RDW 14.2 Plt Count 137 L Neut % (Auto) Not Reportable Lymph % (Auto) Not Reportable [place] % (Auto) Not Reportable Eos % (Auto) Not Reportable Baso % (Auto) Not Reportable Neut # (Auto) Lymph # (Auto) Not Reportable [place] # (Auto) Not Reportable Eos # (Auto) Baso # (Auto) Not Reportable Seg Neutrophils % 70.0 Band Neutrophils % 16.0 H Lymphocytes % (Manual) 8.0 L Monocytes % (Manual) 4.0 Metamyelocytes % 2.0 H Toxic Granulation Present H RBC Morphology See below Sodium 129 L Potassium 3.7 Chloride 99 Carbon Dioxide 23 BUN 28 H Creatinine 1.30 H Estimated GFR 58.0 L BUN/Creatinine Ratio 21.5 Glucose 119 H Hemoglobin A1c 5.4 Lactate Calcium 7.4 L Total Bilirubin AST ALT Alkaline Phosphatase Total Protein Albumin Globulin Albumin/Globulin Ratio Procalcitonin Urine Color Urine Appearance Urine pH Ur Specific [employer] Urine Protein Urine Glucose (UA) Urine Ketones Urine Occult Blood Urine Nitrate Urine Bilirubin Urine Urobilinogen Ur Leukocyte Esterase Urine RBC Urine WBC Ur Squamous Epith Cells Urine Bacteria Ur Culture Indicated? Assessment & Plan Assessment & Plan narrative: 1. Left lower extremity acute bacterial cellulitis: Continue IV vancomycin for possible Staph and Levaquin for gram-negative coverage. 2. Early sepsis: Patient has fever of 103, tachycardia, leukocytosis with white blood cell count of greater than 20,000 on admission last night. We will treat the underlying cause. Continue IV normal saline at 125 cc an hour. 3. Acute kidney injury: His baseline renal function was normal. Creatinine is 1.4 today. Acute kidney injury is likely secondary to sepsis and possible dehydration. We will continue IV hydration. Continue monitor his renal function. 4. Hyperglycemia with an A1c of only 5.4. 5. Hyperbilirubinemia - repeat bilirubin level tomorrow Quality VTE Deep Vein Thrombosis/Pulmonary Embolism Present on Admission: No
[2019-01-22] MEDS: VANCOMYCIN 1,500 MG in SODIUM CHLORIDE 0.9% 500 ML 200 ML IV (13:56)
--- NOTE | 2019-01-22 14:26 | CM.DANOTE ---
Patient is a 53 year old male who was admitted on 01/21/19 for Left Leg Infection. Pt has [employer] for insurance and his PCP was Dr. Britt who has since retired and pt established at [facility]. EMR was reviewed. Per MD, pt with cellulitis and currently on IV-Abx and likely needing a few days in the hospital prior to being stable for d/c. SW attempted to complete bedside assessment twice and pt sleeping very soundly and could not be woken up. Per previous notes, pt resides in [place] with his adult son and father lives nearby. Pt is typically independent at baseline and is employed. Plan: SW to follow for bedside assessment when pt able to stay awake and follow to rule out any IV-Abx needs at d/c. 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 No Advance Directives on File No History Provided By Patient Medical Record Has Patient been admitted in last 30 No days? Prior Living Arrangements House Household Members children Type of transporation used prior to Drives own vehicle admit Comment Lives at home with adult son and father lives nearby Independent with ADL's Yes Is patient alert and oriented? Yes Caregiver for Another No Comment Likely home pending medication needs at d/c and infection status Discharge Plan Home Transportation Arrangement Family can provide transport if stable for home Additional Comment Waiting to determine needs pending progress with IV-Abx Review Status In Process Please Provide Date Initial DC 01/22/19 Assessment Was Performed Next Review Type Continued Stay Review
[2019-01-23] VITALS (11 sets, daily range): BP systolic 113–146; BP diastolic 62–77; PULSE 77–90; RESP 16–18; TEMP 37–38.3; O2SAT 93–98
[2019-01-23] MEDS: ACETAMINOPHEN 325 MG TABLET 650 MG PO (00:27)
[2019-01-23] MEDS: VANCOMYCIN 1,500 MG in SODIUM CHLORIDE 0.9% 500 ML 200 ML IV (01:53)
[2019-01-23] MEDS: SODIUM CHLORIDE 0.9% 1,000 ML 125 ML IV (02:04)
[2019-01-23 05:40] LABS: Add Manual Diff / Slide Review NO; Basophils Absolute Auto 0 /uL (0-100); Basophils Percent Auto 0.2 % (0-2); Eosinophils Absolute Auto 0 /uL (0-450); Eosinophils Percent Auto 0.1 % (2-4); Hematocrit 36.5 % (41-53); Hemoglobin 12.4 g/dL (13.5-17.5); Lymphocytes Absolute Auto 1600 /uL (1100-4500); Lymphocytes Percent Auto 11.4 % (25-40); Monocytes Absolute Auto 900 /uL (0-900); Monocytes Percent Auto 6.3 % (3-14); Neutrophils Absolute Auto 11200 /uL (1500-7000); Platelet Count 131 X10^3/uL (150-400); Red Blood Cell Count 3.76 X10^6/uL (4.5-5.9); Red Cell Distribution Width 14.4 % (11.6-14.8); White Blood Cell Count 13.6 X10^3/uL (4.5-11.0)
[2019-01-23 05:43] LABS: Alanine Aminotransferase 13 IU/L (21-72); Albumin 3.2 g/dL (3.5-5.0); Alkaline Phosphatase 62 U/L (38-126); Aspartate Aminotransferase 30 IU/L (17-59); BUN Creatinine Ratio 10.8 (6-22); Bilirubin Total 0.7 mg/dL (0.2-1.3); Blood Urea Nitrogen 14 mg/dL (9-20); Calcium 7.9 mg/dL (8.4-10.2); Carbon Dioxide 23 mmol/L (22-32); Chloride 107 mmol/L (98-107); Globulin 3.2 g/dL (1.7-4.1); Glucose 120 mg/dL (70-100); HEMOLYSIS < 15 (0-50); Potassium 3.7 mmol/L (3.4-5.1); Sodium 136 mmol/L (137-145); Total Protein 6.4 g/dL (6.3-8.2)
[2019-01-23] MEDS: levoFLOXacin 500 MG/100 ML PIGGYBACK 100 MG IV (12:15)
[2019-01-23] MEDS: ENOXAPARIN 30 MG/0.3 ML SYRINGE SUBCUT (12:21)
--- NOTE | 2019-01-23 14:34 | PC.NURSE ---
Addendum entered by Suni Del Castillo R.N. 01/23/19 15:01: Rima RN in DI updated that she will be seeing patient shortly to place single lumen PICC. Pt updated. Original Note: AM shift Pt is cooperative and tolerating IV ABX. This shift c/o discomfort to IV on R FA, errythemic. Removed. Using L AC, although positional and frequent alarms. @ 1400, this RN noted alarm and PIV removed under tegaderm dressing. It was hurting anyway Levofloxacin not completed. Notified Dr Saucedo, Pt may need extended vascular access for VANCO. PICC order placed. Updated Pt of POC, agreeable. Pending Vanco trough. SBA FWW into BR.
[2019-01-23 14:45] LABS: Vancomycin Trough 13.3 ug/mL (10-20)
[2019-01-23] MEDS: VANCOMYCIN TROUGH 1 REQUEST MISC (14:49)
--- NOTE | 2019-01-23 15:07 | CM.DANOTE ---
DCP/Assessment: Reviewed chart. Pateint is a 53yr old admitted to [facility].. with left leg cellulitis. Patient currently on IV abx with elevated leg. Met with patient explained CM/SW role. At this time d/c planning needs unknown. Patient left leg very swollen today. Patient reports that it's painful. Patient resides with family in [place]. Patient hopes to go home when medically stable. At this time d/c date unknown. Patient reports that he works at [employer] and is very I at baseline. Patient currently does not have PCP. Notified patient that CM team would provide patient with local PCP list. Patient appreciate. Patient previously seen at [facility] by Dr. Britt. Patient has no replaced MD since his departure. Encouraged patient to look into PCP right away. P: Pending needs. Patient currently does not have PCP so if long-term IV abx needed will need following physician. Patient provided with local PCP list and encouraged to obtain PCP right away. Continue to follow closely. STEFANY Patrick Discharge Planning/Care Management CM Discharge Assessment Start: 01/22/19 14:24 Freq: Status: Active Protocol: Document 01/22/19 14:24 BF (Rec: 01/22/19 14:26 BF [id number]) Discharge Planning Assessment Assigned Erp Technical Lead STEFANY Levine Advance Directives? No Advance Directives on File No History Provided By Patient Medical Record Has Patient been admitted in last 30 No days? Prior Living Arrangements House Household Members children Type of transporation used prior to Drives own vehicle admit Comment Lives at home with adult son and father lives nearby Independent with ADL's Yes Is patient alert and oriented? Yes Caregiver for Another No Comment Likely home pending medication needs at d/c and infection status Discharge Plan Home Transportation Arrangement Family can provide transport if stable for home Additional Comment Waiting to determine needs pending progress with IV-Abx Review Status In Process Please Provide Date Initial DC 01/22/19 Assessment Was Performed Next Review Type Continued Stay Review
--- NOTE | 2019-01-23 15:50 | DI.RAD.S_ITS ---
PROCEDURE: XR CHEST 1V INDICATIONS: picc placement TECHNIQUE: One view of the chest was acquired. COMPARISON: [facility], CHEST 1 VIEW, 09/28/2017, 9:08. [facility], , CHEST 1 VIEW, 09/11/2012, 19:45. FINDINGS: Surgical changes and devices: PICC line from right sided approach appears in normal position Lungs and pleura: Lungs are clear. No pleural effusions or pneumothorax. Mediastinum: Mediastinal contours appear normal. Heart size is normal. Bones and chest wall: No suspicious bony lesions. Overlying soft tissues appear unremarkable. IMPRESSION: Normal PICC line positioning. Reduced inspiratory volume. Dictated by: Bucky Keith M.D. on 01/23/2019 at 16:29 Approved by: Bucky Keith M.D. on 01/23/2019 at 16:29
--- NOTE | 2019-01-23 16:54 | PM.PN.1 ---
Subjective Date Patient Seen: 01/23/19 Interval history: Patient is a 53-year-old male admitted with left lower extremity cellulitis and sepsis. He has chronic swelling in the left leg with prior history of cellulitis 3 years ago. Fever seems to be resolving. He reports improved appearance of the leg since started IV antibiotics. 1. Left lower extremity acute bacterial cellulitis: Improving. -Continue IV vancomycin for possible Staph or strep bacteria. Discontinue Levaquin. 2. Early sepsis: Resolving. Patient presented with fever of 103, tachycardia, leukocytosis with white blood cell count of greater than 20,000 on admission. -Continue IV vancomycin. -Hep-Lock IV. PICC line placed due to difficulties with peripheral IV access. 3. Acute kidney injury, prerenal, due to sepsis: Improving. -baseline normal renal function with creatinine 1.00. Creatinine 1.4 on admission and improving. Current creatinine 1.3. 4. Hyperglycemia, stress induced: Improving, A1c 5.4. 5. Hyperbilirubinemia, resolved Exam Vital Signs (past 8 hours): - 01/23/19 09:00 01/23/19 13:00 01/23/19 15:15 Temperature 98.8 F 98.6 F 99.0 F Pulse Rate 82 80 82 Respiratory Rate 18 18 18 Blood Pressure 133/67 127/72 133/77 Pulse Oximetry 97 97 94 Oxygen Delivery Method Room Air Oxygen Flow Rate 0 Narrative Exam Narrative: GENERAL: Patient is in no acute distress EXTREMITIES: Improvement of macular erythema over anterior celeste and dorsum of foot left leg, there is large patch of erythema on the left posterior calf and a few hemorrhagic fluid filled blisters on medial left ankle NEUROLOGICAL: Alert, pleasant, no focal findings Objective Labs Result Diagrams: 01/23/19 05:18 01/23/19 05:18 Labs: Laboratory Results - last 24 hr 01/23/19 01/23/19 01/23/19 05:18 05:18 13:40 WBC 13.6 H RBC 3.76 L Hgb 12.4 L Hct 36.5 L MCV 97.0 MCH 33.0 MCHC 34.0 RDW 14.4 Plt Count 131 L Neut % (Auto) 82.0 H Lymph % (Auto) 11.4 L [place] % (Auto) 6.3 Eos % (Auto) 0.1 L Baso % (Auto) 0.2 Neut # (Auto) 57738 H Lymph # (Auto) 1600 [place] # (Auto) 900 Eos # (Auto) 0 Baso # (Auto) 0 Sodium 136 L Potassium 3.7 Chloride 107 Carbon Dioxide 23 BUN 14 Creatinine 1.30 H Estimated GFR 58.0 L BUN/Creatinine Ratio 10.8 Glucose 120 H Calcium 7.9 L Total Bilirubin 0.7 AST 30 ALT 13 L Alkaline Phosphatase 62 Total Protein 6.4 Albumin 3.2 L Globulin 3.2 Albumin/Globulin Ratio 1.0 Vancomycin Trough 13.3 Quality VTE Deep Vein Thrombosis/Pulmonary Embolism Present on Admission: No
--- NOTE | 2019-01-23 17:02 | P.PN_ITS ---
Subjective Date Patient Seen: 01/23/19 Interval history: Patient is a 53-year-old male admitted with left lower ext remity cellulitis and sepsis. He has chronic swelling in the left leg with prior history of cellulitis 3 years ago. Fever seems to be resolving. He reports improved appearance of the leg since started IV antibiotics. 1. Left lower extremity acute bacterial cellulitis: Improving. -Continue IV vancomycin for possible Staph or strep bacteria. Discontinue Levaquin. 2. Early sepsis: Resolving. Patient presented with fever of 103, tachycardia, leukocytosis with white blood cell count of greater than 20,000 on admission. -Continue IV vancomycin. -Hep-Lock IV. PICC line placed due to difficulties with peripheral IV access. 3. Acute kidney injury, prerenal, due to sepsis: Improving. -baseline normal renal function with creatinine 1.00. Creatinine 1.4 on admission and improving. Current creatinine 1.3. 4. Hyperglycemia, stress induced: Improving, A1c 5.4. 5. Hyperbilirubinemia, resolved Exam Vital Signs (past 8 hours): - 01/23/19 09:00 01/23/19 13:00 01/23/19 15:15 Temperature 98.8 F 98.6 F 99.0 F Pulse Rate 82 80 82 Respiratory Rate 18 18 18 Blood Pressure 133/67 127/72 133/77 Pulse Oximetry 97 97 94 Oxygen Delivery Method Room Air Oxygen Flow Rate 0 Narrative Exam Narrative: GENERAL: Patient is in no acute distress EXTREMITIES: Improvement of macular erythema over anterior celeste and dorsum of foot left leg, there is large patch of erythema on the left posterior calf and a few hemorrhagic fluid filled blisters on medial left ankle NEUROLOGICAL: Alert, pleasant, no focal findings Objective Labs Result Diagrams: 01/23/19 05:18 01/23/19 05:18 Labs: Laboratory Results - last 24 hr 01/23/19 01/23/19 01/23/19 05:18 05:18 13:40 WBC 13.6 H RBC 3.76 L Hgb 12.4 L Hct 36.5 L MCV 97.0 MCH 33.0 MCHC 34.0 RDW 14.4 Plt Count 131 L Neut % (Auto) 82.0 H Lymph % (Auto) 11.4 L [place] % (Auto) 6.3 Eos % (Auto) 0.1 L Baso % (Auto) 0.2 Neut # (Auto) 97093 H Lymph # (Auto) 1600 [place] # (Auto) 900 Eos # (Auto) 0 Baso # (Auto) 0 Sodium 136 L Potassium 3.7 Chloride 107 Carbon Dioxide 23 BUN 14 Creatinine 1.30 H Estimated GFR 58.0 L BUN/Creatinine Ratio 10.8 Glucose 120 H Calcium 7.9 L Total Bilirubin 0.7 AST 30 ALT 13 L Alkaline Phosphatase 62 Total Protein 6.4 Albumin 3.2 L Globulin 3.2 Albumin/Globulin Ratio 1.0 Vancomycin Trough 13.3 Quality VTE Deep Vein Thrombosis/Pulmonary Embolism Present on Admission: No
[2019-01-23] MEDS: VANCOMYCIN 1,500 MG in SODIUM CHLORIDE 0.9% 500 ML 333 ML IV (18:25)
[2019-01-24] VITALS (8 sets, daily range): BP systolic 128–135; BP diastolic 59–80; PULSE 72–80; RESP 16–18; TEMP 36.4–37.4; O2SAT 92–95
--- NOTE | 2019-01-24 01:48 | PC.NURSE ---
2300- Pt admit for cellulitis of LLE; area remains warm/red however decreasing each day. Pt moving w/ walker using toe touch on L side. L foot cushion in place, pulses palpable. R upper arm PICC in place, good blood return noted. 2+ pitting in L leg noted on assessment. 0500- No lab draw this AM; asked woods laborer and she stated she saw none ordered. Will pass onto dayshift RN.
[2019-01-24] MEDS: VANCOMYCIN 1,500 MG in SODIUM CHLORIDE 0.9% 500 ML 333.333 ML IV ×2 (06:31→18:28)
[2019-01-24] MEDS: ENOXAPARIN 40 MG/0.4 ML SYRINGE SUBCUT (09:17)
--- NOTE | 2019-01-24 10:25 | PC.NURSE ---
Will has been afebrile. He states he thinks his LLE is improving. LLE shows 1+ edema, and erythema traveling up lower leg from foot. He has splotches of darker red verging on purple close to the heel and the posterior part of calf. I see no drainage or open areas. IV Vanco given.
--- NOTE | 2019-01-24 19:52 | P.PN_ITS ---
Subjective Date Patient Seen: 01/24/19 Interval history: Patient is a 53-year-old male admitted with left lower ext remity cellulitis and sepsis. He has chronic swelling in the left leg with prior history of cellulitis 3 years ago. Cellulitis is gradually improving the still significant. Patient with no acute complaints. Exam Vital Signs (past 8 hours): - 01/24/19 13:57 01/24/19 15:00 01/24/19 15:44 Temperature 98.1 F 97.5 F L Pulse Rate 78 73 Respiratory Rate 16 18 Blood Pressure 128/66 133/74 Pulse Oximetry 92 95 95 Oxygen Delivery Method Room Air Oxygen Flow Rate 0 Narrative Exam Narrative: GENERAL: Patient is in no acute distress EXTREMITIES: Improvement of macular erythema over anterior celeste and dorsum of foot left leg, there is large patch of erythema on the left posterior calf and a few hemorrhagic fluid filled blisters on medial left ankle NEUROLOGICAL: Alert, pleasant, no focal findings Objective Labs Result Diagrams: 01/23/19 05:18 01/23/19 05:18 Assessment & Plan Assessment & Plan narrative: 1. Left lower extremity acute bacterial cellulitis: Improving. -Continue IV vancomycin for likely Staph or strep bacteria. Discontinued Levaquin on 01/23/2019. 2. Early sepsis: Resolving. Patient presented with fever of 103, tachycardia, leukocytosis with white blood cell count of greater than 20,000 on admission. -Continue IV vancomycin, pharmacy service to monitor and adjust. -Hep-Lock IV. PICC line placed due to difficulties with peripheral IV access. 3. Acute kidney injury, prerenal, due to sepsis: Improving. -baseline normal renal function with creatinine 1.00. Creatinine 1.4 on admission and improving. Last creatinine 1.3. 4. Hyperglycemia, stress induced: Improving, A1c 5.4. 5. Hyperbilirubinemia, resolved Quality VTE Deep Vein Thrombosis/Pulmonary Embolism Present on Admission: No
[2019-01-25] VITALS (9 sets, daily range): BP systolic 122–138; BP diastolic 67–78; PULSE 67–75; RESP 16–18; TEMP 36.4–37; O2SAT 94–99
--- NOTE | 2019-01-25 02:49 | PC.NURSE ---
Assumed care of pt at 2300 on 01/24/19. Pt resting in bed. LLE elevated on pillows and heel protector boot. Intact blisters noted to inner and die developer calf. No drainage from leg noted. Erythema receding from previously drawn boarders. Denies pain. PICC S.L. Calling appropriately for needs.
[2019-01-25] MEDS: SODIUM CHLORIDE 0.9% FLUSH 10 ML IV ×2 (06:21→09:01)
[2019-01-25] MEDS: VANCOMYCIN 1,500 MG in SODIUM CHLORIDE 0.9% 500 ML 333.333 ML IV (06:22)
[2019-01-25] MEDS: ENOXAPARIN 40 MG/0.4 ML SYRINGE SUBCUT (09:01)
[2019-01-25] MEDS: ACETAMINOPHEN 325 MG TABLET 650 MG PO ×2 (09:01→13:32)
--- NOTE | 2019-01-25 10:25 | PC.NURSE ---
Addendum entered by Bushra Holguin R.N. 01/25/19 13:33: PAIN - after lunch pt up ambul br, sink and ret bed, some incr throbbing like discomfort lle 1 on scale 0/10, given 650mg po tylenol, lle elev pillows. Original Note: AM NOTE - pt is alert, lle elev pillow support, 3+ edema l foot, ankle, pink anterior calf within previous markings, continues with more intense redness posterior calf, bruising and blood filled blister medial l ankle, has a small pinpoint scab ankle, some throbbing discomfort when mobilizing, up to chair w/elev legs at breakfast, given tylenol 650mg, pt req prune juice this am, denies discomfort or constipation.
[2019-01-25 19:43] LABS: Vancomycin Trough 12.4 ug/mL (10-20)
[2019-01-25] MEDS: VANCOMYCIN 1,500 MG in SODIUM CHLORIDE 0.9% 500 ML 333 ML IV (20:16)
[2019-01-25] MEDS: VANCOMYCIN TROUGH 1 REQUEST MISC (20:17)
--- NOTE | 2019-01-25 21:25 | P.PN_ITS ---
Subjective Date Patient Seen: 01/25/19 Interval history: Patient is a 53-year-old male admitted with left lower extremity cellulitis and sepsis. He has chronic swelling in the left leg with prior history of cellul itis 3 years ago. The patient is resting in bed comfortably and in no acute distress. He reports that his cellulitis is slightly worsened since yesterday in that is more erythematous. On examination his cellulitis continues to be within and slightly protracted from the margins of tracing. He does endorse left foot throbbing sensation when he lowers it or is standing. He has no other complaints. He denies headache, chest pain, shortness of breath, nausea, vomiting, fever, chills, dysuria, diarrhea or constipation. Exam Vital Signs (past 8 hours): - 01/25/19 15:00 01/25/19 15:30 01/25/19 20:03 Temperature 97.8 F 97.6 F Pulse Rate 75 67 Respiratory Rate 18 18 Blood Pressure 122/68 138/73 Pulse Oximetry 99 98 99 Oxygen Delivery Method Room Air Oxygen Flow Rate 0 Narrative Exam Narrative: General: Middle-aged gentleman sitting in bed and in no acute distress, well- developed, well-nourished, appropriately interactive. HEENT: Normocephalic, atraumatic. External ears without defect. Pupils equal, round, and reactive to light. Anicteric sclerae, moist conjunctivae, and no lid lag. Neck: Supple with full range of motion. No lymphadenopathy or thyromegaly. Cardiovascular: Regular rate and rhythm without murmurs, rubs, or gallops appreciated. Pulmonary: Clear to auscultation bilaterally without crackles, wheezes, or rhonchi. Normal respiratory effort with no use of accessory muscles. Abdomen: Soft, bowel sounds present, nontender, nondistended. No hepatosplenomegaly or masses appreciated. Extremities: No clubbing, cyanosis, or edema. Skin: Circumferential cellulitis of left lower extremity with moderate edema and scattered hemorrhagic bullae mostly medial superior to malleoli. Neurological: Cranial nerves grossly intact. Psychiatric: Normal mood and affect. Alert and oriented to person, place, and time. Objective Labs Result Diagrams: 01/23/19 05:18 01/23/19 05:18 Labs: Laboratory Results - last 24 hr 01/25/19 18:46 Vancomycin Trough 12.4 Assessment & Plan Assessment & Plan narrative: 1. Acute left lower extremity cellulitis, present on admission. Resolving. -Continue IV vancomycin for likely Staph or strep bacteria. Discontinued Levaquin on 01/23/2019. -Ordered wound care consult , pending. 2. Early sepsis, present on admission. Resolved. -Patient presented with fever of 103, tachycardia, leukocytosis with white blood cell count of greater than 20,000 on admission. -Continue IV vancomycin, pharmacy service to monitor and adjust. -Hep-Lock IV. PICC line placed due to difficulties with peripheral IV access. 3. Acute kidney injury, prerenal, due to sepsis: Improving. -Baseline normal renal function with creatinine 1.00. Creatinine 1.4 on admission and improving. Last creatinine 1.3. 4. Hyperglycemia, stress induced. Improving, A1c 5.4. 5. Hyperbilirubinemia, resolved. Quality VTE Deep Vein Thrombosis/Pulmonary Embolism Present on Admission: No
[2019-01-26] VITALS (10 sets, daily range): BP systolic 125–133; BP diastolic 68–76; PULSE 63–74; RESP 16–18; TEMP 36.6–37.4; O2SAT 93–99
--- NOTE | 2019-01-26 01:38 | PC.NURSE ---
Assumed care of pt at 2300 on 01/25/19. Pt resting in bed during bedside hand-off. LLE elevated on pillows. Erythema receding from previously drawn boarders. Blisters remain intact, no weeping noted. Denies pain. PICC S.L. Calling appropriately for needs.
[2019-01-26 05:49] LABS: Add Manual Diff / Slide Review NO; Basophils Absolute Auto 100 /uL (0-100); Eosinophils Absolute Auto 300 /uL (0-450); Eosinophils Percent Auto 2.4 % (2-4); Hematocrit 37.4 % (41-53); Hemoglobin 12.6 g/dL (13.5-17.5); Lymphocytes Absolute Auto 2300 /uL (1100-4500); Lymphocytes Percent Auto 21.6 % (25-40); Mean Corpuscular HGB Conc 33.6 % (30-36); Mean Corpuscular Hemoglobin 32.6 PG (26-34); Monocytes Absolute Auto 1100 /uL (0-900); Neutrophils Absolute Auto 6900 /uL (1500-7000); Platelet Count 221 X10^3/uL (150-400); Red Blood Cell Count 3.86 X10^6/uL (4.5-5.9); Red Cell Distribution Width 14.1 % (11.6-14.8); White Blood Cell Count 10.6 X10^3/uL (4.5-11.0)
[2019-01-26] MEDS: SODIUM CHLORIDE 0.9% FLUSH 10 ML IV ×3 (06:28→21:01)
[2019-01-26] MEDS: VANCOMYCIN 1,500 MG in SODIUM CHLORIDE 0.9% 500 ML 333.333 ML IV (06:29)
[2019-01-26 06:44] LABS: Alanine Aminotransferase 20 IU/L (21-72); Albumin 3.3 g/dL (3.5-5.0); Albumin Globulin Ratio 0.9 (1.0-2.8); Alkaline Phosphatase 90 U/L (38-126); Aspartate Aminotransferase 50 IU/L (17-59); BUN Creatinine Ratio 13.6 (6-22); Bilirubin Total 0.7 mg/dL (0.2-1.3); Blood Urea Nitrogen 15 mg/dL (9-20); Calcium 8.4 mg/dL (8.4-10.2); Carbon Dioxide 28 mmol/L (22-32); Chloride 102 mmol/L (98-107); Estimated Glomerular Filt Rate > 60.0 mL/min (>60); Globulin 3.6 g/dL (1.7-4.1); Glucose 99 mg/dL (70-100); HEMOLYSIS < 15 (0-50); Potassium 4.1 mmol/L (3.4-5.1); Sodium 139 mmol/L (137-145); Total Protein 6.9 g/dL (6.3-8.2)
--- NOTE | 2019-01-26 07:28 | P.PN_ITS ---
Subjective Date Patient Seen: 01/26/19 Interval history: Justin Birch is a 53-year-old male admitted with left lower extremity cellulitis and sepsis. He has chronic swelling in the left leg with prior hist ory of cellulitis 3 years ago. The patient is resting in bed comfortably and in no acute distress. He reports that his cellulitis is improved today especially the edema. On examination his cellulitis continues to be within and slightly protracted from the margins of tracing. He does endorse temporary left foot throbbing sensation when he lowers it or is standing. He has no other complaints. He denies headache, chest pain, shortness of breath, nausea, vomiting, fever, chills, dysuria, diarrhea or constipation. He is voiding and eliminating without difficulty. He is ambulating independently. Exam Vital Signs (past 8 hours): - 01/26/19 00:04 01/26/19 00:45 01/26/19 04:00 Temperature 98.3 F 99.4 F Pulse Rate 74 71 Respiratory Rate 18 18 Blood Pressure 133/70 128/69 Pulse Oximetry 97 96 94 01/26/19 06:30 Temperature 98.6 F Pulse Rate Respiratory Rate Blood Pressure Pulse Oximetry Oxygen Delivery Method Room Air Oxygen Flow Rate 0 Narrative Exam Narrative: General: Middle-aged gentleman sitting in bed and in no acute distress, well- developed, well-nourished, appropriately interactive. HEENT: Normocephalic, atraumatic. External ears without defect. Pupils equal, round, and reactive to light. Anicteric sclerae, moist conjunctivae, and no lid lag. Neck: Supple with full range of motion. No lymphadenopathy or thyromegaly. Cardiovascular: Regular rate and rhythm without murmurs, rubs, or gallops appreciated. Pulmonary: Clear to auscultation bilaterally without crackles, wheezes, or rhonchi. Normal respiratory effort with no use of accessory muscles. Abdomen: Soft, bowel sounds present, nontender, nondistended. No hepatosplenomegaly or masses appreciated. Extremities: No clubbing or cyanosis. Unilateral edema of left foot significant ly improved. Skin: Circumferential cellulitis of left lower extremity with moderate edema improved and scattered hemorrhagic bullae mostly medial superior to malleoli. Neurological: Cranial nerves grossly intact. Psychiatric: Normal mood and affect. Alert and oriented to person, place, and time. Objective Labs Result Diagrams: 01/26/19 05:15 01/26/19 05:15 Labs: Laboratory Results - last 24 hr 01/25/19 01/26/19 01/26/19 18:46 05:15 05:15 WBC 10.6 RBC 3.86 L Hgb 12.6 L Hct 37.4 L MCV 97.0 MCH 32.6 MCHC 33.6 RDW 14.1 Plt Count 221 Neut % (Auto) 65.0 Lymph % (Auto) 21.6 L [place] % (Auto) 10.0 Eos % (Auto) 2.4 Baso % (Auto) 1.0 Neut # (Auto) 6900 Lymph # (Auto) 2300 [place] # (Auto) 1100 H Eos # (Auto) 300 Baso # (Auto) 100 Sodium 139 Potassium 4.1 Chloride 102 Carbon Dioxide 28 BUN 15 Creatinine 1.10 Estimated GFR > 60.0 BUN/Creatinine Ratio 13.6 Glucose 99 Calcium 8.4 Total Bilirubin 0.7 AST 50 ALT 20 L Alkaline Phosphatase 90 Total Protein 6.9 Albumin 3.3 L Globulin 3.6 Albumin/Globulin Ratio 0.9 L Procalcitonin Vancomycin Trough 12.4 01/26/19 05:15 WBC RBC Hgb Hct MCV MCH MCHC RDW Plt Count Neut % (Auto) Lymph % (Auto) [place] % (Auto) Eos % (Auto) Baso % (Auto) Neut # (Auto) Lymph # (Auto) [place] # (Auto) Eos # (Auto) Baso # (Auto) Sodium Potassium Chloride Carbon Dioxide BUN Creatinine Estimated GFR BUN/Creatinine Ratio Glucose Calcium Total Bilirubin AST ALT Alkaline Phosphatase Total Protein Albumin Globulin Albumin/Globulin Ratio Procalcitonin 0.80 H Vancomycin Trough Assessment & Plan Assessment & Plan narrative: Justin Birch is a 53-year-old male admitted with left lower extremity cellulitis and sepsis. He has chronic swelling in the left leg with prior histo ry of cellulitis 3 years ago. 1. Acute left lower extremity cellulitis, present on admission. Resolving. -Continue IV vancomycin and levofloxacin 750 mg for likely Staph/strep and gram- negative coverage, respectively. -Ordered wound care consult, pending. 2. Early sepsis, present on admission. Resolved. -Patient presented with fever of 103, tachycardia, leukocytosis with white blood cell count of greater than 20,000 on admission. -Hep-Lock IV. PICC line placed due to difficulties with peripheral IV access. -Continue to treat underlying cause of cellulitis as above. 3. Acute kidney injury, prerenal, due to sepsis. Resolved. -Baseline normal renal function with creatinine 1.00. Creatinine 1.4 on admission. Trended down to 1.10. 4. Hyperglycemia, stress induced. Improving, A1c 5.4. 5. Hyperbilirubinemia, resolved. -Likely biliary stasis of acute infection. Disposition: Likely to discharge in 1-2 days depending upon improvement in cellulitis and wound care management. Quality VTE Deep Vein Thrombosis/Pulmonary Embolism Present on Admission: No
[2019-01-26] MEDS: ACETAMINOPHEN 325 MG TABLET 650 MG PO ×2 (08:40→21:01)
[2019-01-26] MEDS: levoFLOXacin 750 MG/150 ML PIGGYBACK 100 MG IV (08:40)
[2019-01-26] MEDS: ENOXAPARIN 40 MG/0.4 ML SYRINGE SUBCUT (08:41)
--- NOTE | 2019-01-26 11:26 | PC.NURSE ---
Addendum entered by Bushra Holguin R.N. 01/26/19 14:41: GI - updated pt re plan for test in am and npo status tonight, pt is resting comfortably in bed at 30 degrees conversing with son. Original Note: Addendum entered by Bushra Holguin R.N. 01/26/19 14:38: GI - informed placed pt NPO after 1999 for 12 hrs prior gastric empty test planned for 8 am tomorrow. As cbg have been low today, will reveiw Lantus and have blood sugars checked q6. Original Note: Addendum entered by Bushra Holguin R.N. 01/26/19 14:35: [employer] - left msg with Wound office manager receptionist re had req a consultation yesterday regarding fluid blister. Original Note: AM NOTE - pt is alert, some throbbing discomfort lle when ambulating, lle elev pillow support, redness ant calf intense and warm to touch at mid calf, has receeded from previous markings, post calf with intense redness and darker discoloration, has dark discoloration at medial l ankle extending behind heel, fluid filled blister intact, given tylenol 650mg po with breakfast.
--- NOTE | 2019-01-26 15:24 | PC.NURSE ---
AM NOTE - pt is alert, some throbbing discomfort lle when ambulating, lle elevated pillow support, redness anterior calf with some warmth to touch at mid calf, redness has receeded from prev markings on anterior side, continues intense redness posterior calf with darking bruising like discoloration, l medial ankle has a intact fluid filled dark blister with the bruising extending behind heel, given 650mg po tylenol with breakfast, at shift change Patrizia from wound clinic in to examine.
[2019-01-26] MEDS: VANCOMYCIN 1,500 MG in SODIUM CHLORIDE 0.9% 500 ML 333 ML IV (18:12)
--- NOTE | 2019-01-26 20:53 | PM.CN ---
History of Present Illness Date Patient Seen: 01/26/19 Time Patient Seen: 18:00 Chief complaint: LEFT LEG INFECTION Reason for consult: Consideration of bullae aspiration for microbiological analysis. Requesting provider: Donna Guevara Narrative: 53-year-old immunocompetent male admitted with early sepsis and LLE cellulitis associated with LLE pain, erythema, ecchymotic rash, and intact hemorrhagic bullae. Pain does not seem as if it were out of proportion to findings. Patient reports similar episode 3 years ago that improved after addition of Levaquin to his antibiotic regimen. Current antibiotics include IV vancomycin and IV Levaquin. At this point in his clinical course, his sepsis has resolved, his cellulitis is improving, and laboratory markers are normal (or in the process of normalizing). Blood cultures x 2 returned NG. Denies recent travel, trauma, bite, IVDA, exposure to freshwater or saltwater, or exposure to raw or undercooked seafood. [facility] Medical History Cellulitis and abscess of foot (Acute) Mandible fracture (Acute) Social History household members: children Smoking Status: Never smoker alcohol intake: current Social History household members: children Smoking Status: Never smoker alcohol intake: current Meds Home Medications Medication Instructions Recorded Confirmed Type No Known Home Medications 01/21/19 01/21/19 History Allergies Allergy/AdvReac Type Severity Reaction Status Date / Time No Known Drug Allergies Allergy Verified 01/21/19 19:45 Review of Systems Constitutional Constitutional: Denies anorexia, Reports chills, Reports fever(s), Denies headache(s), Reports malaise, Denies poor appetite and Denies weight loss Comments: No current constitutional symptoms. ENT Ears, Nose, Mouth, and Throat: No headache(s) and No neck pain Cardiovascular Cardiovascular: Denies chest pain, Reports foot swelling, Reports leg swelling and Denies shortness of breath Respiratory Respiratory: Denies cough and Denies dyspnea Gastrointestinal Gastrointestinal: Denies abdominal pain, Denies melena, Denies hematochezia, Denies nausea and Denies vomiting Genitourinary Genitourinary: Denies dysuria Musculoskeletal Musculoskeletal: Denies myalgias, Denies arthralgias, Denies joint swelling, Denies muscle cramps, Denies muscle weakness and Denies neck pain Neurologic Neurologic: Denies confusion and Denies headache(s) Psychiatric Psychiatric: Denies confusion Exam Vital Signs (past 8 hours): - 01/26/19 15:00 01/26/19 16:00 Temperature 98.0 F Pulse Rate 73 Respiratory Rate 18 Blood Pressure 132/74 Pulse Oximetry 98 97 Oxygen Delivery Method Room Air Oxygen Flow Rate 0 Const General: cooperative, comfortable and well developed Nutritional Appearance: well nourished [facility] Ears: hearing grossly normal bilaterally Eyes Sclera: sclerae normal Resp Effort & Inspection: normal respiratory effort Cardio Rate: regular rate Rhythm: regular rhythm Pulses: normal peripheral pulses Skin Other: No open wound noted. Circumferential erythema and ecchymoses of the LLE extending up the LLE proximal to the medial thigh. The erythema exhibits increased warmth to palpation. The LLE exhibits moderate local tissue swelling. Associated scattered hemorrhagic bullae are clustered near the medial malleolus. There is no gangrene, necrosis, crepitus, or foul odor. No calf TTP. Neuro General: alert, awake, oriented x3 and moves all extremities Motor: no movement abnormalities noted Sensory Exam: no sensory deficits noted Extrem General: No clubbing and No cyanosis Left lower extremity: normal capillary refill Other: Scab dorsal left index finger over PIPJ. Psych Appearance: grossly normal Mental Status: mental status grossly normal Mood: congruent mood Affect: normal affect Judgment: judgment good Objective Labs Result Diagrams: 01/26/19 05:15 01/27/19 05:55 Labs: Laboratory Results - last 24 hr 01/26/19 01/26/19 01/26/19 05:15 05:15 05:15 WBC 10.6 RBC 3.86 L Hgb 12.6 L Hct 37.4 L MCV 97.0 MCH 32.6 MCHC 33.6 RDW 14.1 Plt Count 221 Neut % (Auto) 65.0 Lymph % (Auto) 21.6 L Elmore % (Auto) 10.0 Eos % (Auto) 2.4 Baso % (Auto) 1.0 Neut # (Auto) 6900 Lymph # (Auto) 2300 [place] # (Auto) 1100 H Eos # (Auto) 300 Baso # (Auto) 100 Sodium 139 Potassium 4.1 Chloride 102 Carbon Dioxide 28 BUN 15 Creatinine 1.10 Estimated GFR > 60.0 BUN/Creatinine Ratio 13.6 Glucose 99 Calcium 8.4 Total Bilirubin 0.7 AST 50 ALT 20 L Alkaline Phosphatase 90 Total Protein 6.9 Albumin 3.3 L Globulin 3.6 Albumin/Globulin Ratio 0.9 L Procalcitonin 0.80 H Nasal Screen MRSA (PCR) 01/26/19 Unknown WBC RBC Hgb Hct MCV MCH MCHC RDW Plt Count Neut % (Auto) Lymph % (Auto) Elmore % (Auto) Eos % (Auto) Baso % (Auto) Neut # (Auto) Lymph # (Auto) Elmore # (Auto) Eos # (Auto) Baso # (Auto) Sodium Potassium Chloride Carbon Dioxide BUN Creatinine Estimated GFR BUN/Creatinine Ratio Glucose Calcium Total Bilirubin AST ALT Alkaline Phosphatase Total Protein Albumin Globulin Albumin/Globulin Ratio Procalcitonin Nasal Screen MRSA (PCR) Negative for mrsa Assessment & Plan Assessment & Plan narrative: Assessment: 53-year-old male with clinical picture most consistent with resolving sepsis and bullous hemorrhagic cellulitis. Streptococci (particularly Strep pyogenes) and occasionally staphylococci are the primary consideration in normal hosts without trauma. Gram negative infections would be much less common in the immunocompetent patient in the absence of specific risk factors in the patient history. Plan: 1. In order to potentially determine etiology and allow for pharmacologic therapy to be streamlined, I will aspirate the contents of a hemorrhagic bulla for microbiological analysis, with the caveat that collecting a sample after the administration of antimicrobial therapy may decrease culture yield/cause inconclusive results. 2. Consider CK level to evaluate for myositis and, if elevated, would recommend surgical consult +/- MRI. 3. If patient's clinical course deteriorates, would also recommend surgical consult +/- MRI. Aspiration of hemorrhagic bulla by: Collin Alvarado MD Verbal consent obtained. Risks, benefits and alternatives were discussed. Consent given by patient. Patient verbalizes understanding of the procedure being performed. Patient identity confirmed by arm band. Immediately prior to procedure a time out was called to verify the correct patient, procedure, equipment, retail support manager and site/side marked as required. No anesthetic was needed. Using clean technique, 1 cc of sanguineous fluid was aspirated from left medial ankle bulla into syringe using an 18G needle. Remaining fluid in the punctured bulla was manually expressed. The area of the punctured bulla was then cleaned with NS, patted dry with gauze, and covered with a foam dressing. Patient tolerated the procedure well with no immediate complications.
[2019-01-27] VITALS (7 sets, daily range): BP systolic 120–144; BP diastolic 64–78; PULSE 65–70; RESP 16–18; TEMP 36.6–37; O2SAT 95–98
--- NOTE | 2019-01-27 00:13 | PC.NURSE ---
pau note assumed care at 20:00. Left leg is red and posterior leg is purple-red. Blisters around circumference of ankle, one with drsg CDI. Pt reports 2/10 pain; medicated with Tylenol.
[2019-01-27] MEDS: VANCOMYCIN 1,500 MG in SODIUM CHLORIDE 0.9% 500 ML 333.333 ML IV (06:21)
[2019-01-27 06:39] LABS: BUN Creatinine Ratio 13.6 (6-22); Blood Urea Nitrogen 15 mg/dL (9-20); Calcium 8.8 mg/dL (8.4-10.2); Carbon Dioxide 29 mmol/L (22-32); Chloride 103 mmol/L (98-107); Creatine Kinase 64 U/L (55-170); Estimated Glomerular Filt Rate > 60.0 mL/min (>60); Glucose 96 mg/dL (70-100); HEMOLYSIS 42 (0-50); Potassium 4.8 mmol/L (3.4-5.1); Sodium 139 mmol/L (137-145)
[2019-01-27 07:09] LABS: Procalcitonin 0.48 ng/mL (<0.5)
--- NOTE | 2019-01-27 08:16 | DS_ITS ---
History of Present Illness Date Patient Seen: 01/21/19 Chief complaint: wound consult Narrative: Written by Dr. Warren: 53-year-old former patient of Dr. Becker'shaina who presented to the [facility] Emergency room this evening for left foot and lower leg pain and swelling, fever and chills for 2 days. He started noticing a skin breakdown on the medial aspect of left foot about 2 days ago. He has mild discomfort in the area. He also noticed redness and swelling in the surrounding soft tissue. He also has been having fevers and chills. His temp went up to 103. Today the redness and swelling progressed to his left lower leg. He was diagnosed with left lower extremity cellulitis. He received IV vancomycin and was admitted to the medicine floor for left lower extremity cellulitis. Discharge Providers Discharge Date: 01/27/19 Primary care physician: Robel Britt MD Discharge provider: Donna Guevara DO Summary Discharge Diagnosis: 1. Acute left lower extremity cellulitis, present on admission. Resolving. 2. Early sepsis, present on admission. Resolved. 3. Acute kidney injury, present on admission. Resolved. 4. Hyperglycemia, present on admission. Resolved. -Stress induced. -Patient is not diabetic as hemoglobin A1c 5.4%. 5. Hyperbilirubinemia, present on admission. Resolved. Hospital Course: Justin Birch is a 53-year-old male admitted with left lower extremity cellulitis and sepsis. He has chronic swelling in the left leg with prior history of cellulitis 3 years ago. 1. Acute left lower extremity cellulitis, present on admission. Resolving. -Continued IV vancomycin and levofloxacin 750 mg for likely Staph/strep (most common in immunocompetent host without significant trauma or fresh water exposure) and gram-negative coverage, respectively. Discharged on doxycycline and Augmentin to complete 10 day course of antibiotics total. Discussed case with Dr. Bray at [facility] who agreed with outpatient antibiotic regimen and recommended the above or clindamycin. -Wound care consulted. Hemorrhagic bullae was aspirated without any organisms identified. The patients cellulitis vastly improved over the last 24-48 hours with additional gram-negative coverage and he will follow up in 1 week with wound care as he does not have a PCP. Provided the patient contact numbers for PCPs in the area that are taking new patients and recommended he establish care in the near future. 2. Early sepsis, present on admission. Resolved. -Patient presented with fever of 103, tachycardia, leukocytosis with white blood cell count of greater than 20,000 on admission. -Hep-Lock IV. PICC line placed due to difficulties with peripheral IV access. -Continued to treat underlying cause of cellulitis as above. 3. Acute kidney injury, present on admission. Resolved. -Secondary to prerenal azotemia from sepsis. -Baseline creatinine 1.00. Creatinine 1.4 on admission. Trended down to 1.10. 4. Hyperglycemia, present on admission. Resolved. -Stress induced. -Patient is not diabetic as hemoglobin A1c 5.4%. 5. Hyperbilirubinemia, present on admission. Resolved. -Likely biliary stasis of acute infection. Status at Discharge Functional status at discharge: independent ambulation Overall status at discharge: patient is progressing back to baseline Exam Narrative Exam Narrative: General: Middle-aged gentleman sitting in bed and in no acute distress, well- developed, well-nourished, appropriately interactive. HEENT: Normocephalic, atraumatic. External ears without defect. Pupils equal, round, and reactive to light. Anicteric sclerae, moist conjunctivae, and no lid lag. Neck: Supple with full range of motion. No lymphadenopathy or thyromegaly. Cardiovascular: Regular rate and rhythm without murmurs, rubs, or gallops appreciated. Pulmonary: Clear to auscultation bilaterally without crackles, wheezes, or rhonchi. Normal respiratory effort with no use of accessory muscles. Abdomen: Soft, obese, bowel sounds present, nontender, nondistended. No hepatosplenomegaly or masses appreciated. Extremities: No clubbing or cyanosis. Unilateral edema of left foot significantly improved. Skin: Circumferential cellulitis of left lower extremity with moderate edema significantly improved since prior exam with scattered hemorrhagic bullae mostly medial superior to malleoli which are also improved. Neurological: Cranial nerves grossly intact. Psychiatric: Normal mood and affect. Alert and oriented to person, place, and time. Discharge Plan Discharge Med Rec/Prescriptions Prescriptions: No Action doxycycline hyclate 100 mg capsule 100 mg PO BID Qty: 8 RF: 0 amoxicillin 500 mg capsule 500 mg PO TID Qty: 12 RF: 0 Discharge Data Primary Care Provider: Robel Britt Attending Provider: Collin Alvarado Signed By:<Electronically signed by Donna Guevara D.O.>01/28/19 0816
[2019-01-27] MEDS: levoFLOXacin 750 MG/150 ML PIGGYBACK 100 MG IV (08:42)
[2019-01-27] MEDS: ACETAMINOPHEN 325 MG TABLET 650 MG PO (08:42)
[2019-01-27] MEDS: ENOXAPARIN 40 MG/0.4 ML SYRINGE SUBCUT (08:55)
--- NOTE | 2019-01-27 10:15 | PC.NURSE ---
Addendum entered by Bushra Holguin R.N. 01/27/19 15:36: DC - in and pt will be discharged home, brought in the largest vamsi hose we have here and even by cutting the toe area, the pair is too tight for the r leg or the l and pt would not be able to get on/off w/out a lot of assistance, spoke to Dr. Guevara, recommend pt buy knee teds with some compression when home, his wallet and credit cards were returned, picc line dc'd per protocol w/o difficulty with intact tip, bacitracin on 2x2 over with op site covering. Original Note: AM NOTE - alert, lle elev pillow support, 3+ pedal edema, the intense redness is receeding anterior and posterior calf areas,continues pink to the previous markings, bruising discoloration medial l ankle and accross heel area is less intense than yesterday's assessment, allevyn dsg w/small qty serosang after blister drained, replaced Allevyn, given 650mg tylenol for discomfort.
--- NOTE | 2019-04-12 03:04 | PC.NURSE ---
late entry. vancomycin fluid stop time at 2219. 500 ml infused. 0 waste.
== END 2019-01-27 16:08 | disposition home or self-care (01) | DRG 872 ==
LOC: ED 21:38 → AC 21:40
PROVIDERS: Family Medicine; Internal Medicine; Admitting Provider Internal Medicine; Emergency Provider Emergency Medicine; Family Provider Family Medicine; PCP Family Medicine; Visit Provider Internal Medicine
DX: A41.9 Sepsis, unspecified organism (principal); L03.116 Cellulitis of left lower limb; N17.9 Acute kidney failure, unspecified; E87.1 Hypo-osmolality and hyponatremia; R65.20 Severe sepsis without septic shock; E80.6 Other disorders of bilirubin metabolism
CPT/HCPCS: 36415; 36573; 36591; 36592; 71045; 80048; 80053; 80202; 81001; 82550; 83036; 83605; 84145; 85025; 87040; 87070; 87075; 87205; 87797; 93971; 96365; 96366; 96374; 96375; 99282; 99284; J1650; J1885; J1956

== ENCOUNTER → 2019-01-27 13:29 | Outpatient (CLI) | payer BC, SELFPAY ==
[2019-01-21 22:11] VITALS: BMI 39.9
--- NOTE | 2019-01-28 08:05 | P.DS_ITS ---
History of Present Illness Date Patient Seen: 01/21/19 Chief complaint: wound consult Narrative: Written by Dr. Warren: 53-year-old former patient of Dr. Becker'shaina who presented to the [facility] Emergency room this evening for left foot and lower leg pain and swelling, fever and chills for 2 days. He started noticing a skin breakdown on the medial aspect of left foot about 2 days ago. He has mild discomfort in the area. He also noticed redness and swelling in the surrounding soft tissue. He also has been having fevers and chills. His temp went up to 103. Today the redness and swelling progressed to his left lower leg. He was diagnosed with left lower extremity cellulitis. He received IV vancomycin and was admitted to the medicine floor for left lower extremity cellulitis. Discharge Providers Discharge Date: 01/27/19 Primary care physician: Robel Britt MD Discharge provider: Donna Guevara DO Summary Discharge Diagnosis: 1. Acute left lower extremity cellulitis, present on admission. Resolving. 2. Early sepsis, present on admission. Resolved. 3. Acute kidney injury, present on admission. Resolved. 4. Hyperglycemia, present on admission. Resolved. -Stress induced. -Patient is not diabetic as hemoglobin A1c 5.4%. 5. Hyperbilirubinemia, present on admission. Resolved. Hospital Course: Justin Birch is a 53-year-old male admitted with left lower extremity cellulitis and sepsis. He has chronic swelling in the left leg with prior history of cellulitis 3 years ago. 1. Acute left lower extremity cellulitis, present on admission. Resolving. -Continued IV vancomycin and levofloxacin 750 mg for likely Staph/strep (most common in immunocompetent host without significant trauma or fresh water exposure) and gram-negative coverage, respectively. Discharged on doxycycline and Augmentin to complete 10 day course of antibiotics total. Discussed case with Dr. Bray at [facility] who agreed with outpatient antibiotic regimen and recommended the above or clindamycin. -Wound care consulted. Hemorrhagic bullae was aspirated without any organisms identified. The patients cellulitis vastly improved over the last 24-48 hours with additional gram-negative coverage and he will follow up in 1 week with wound care as he does not have a PCP. Provided the patient contact numbers for PCPs in the area that are taking new patients and recommended he establish care in the near future. 2. Early sepsis, present on admission. Resolved. -Patient presented with fever of 103, tachycardia, leukocytosis with white blood cell count of greater than 20,000 on admission. -Hep-Lock IV. PICC line placed due to difficulties with peripheral IV access. -Continued to treat underlying cause of cellulitis as above. 3. Acute kidney injury, present on admission. Resolved. -Secondary to prerenal azotemia from sepsis. -Baseline creatinine 1.00. Creatinine 1.4 on admission. Trended down to 1.10. 4. Hyperglycemia, present on admission. Resolved. -Stress induced. -Patient is not diabetic as hemoglobin A1c 5.4%. 5. Hyperbilirubinemia, present on admission. Resolved. -Likely biliary stasis of acute infection. Status at Discharge Functional status at discharge: independent ambulation Overall status at discharge: patient is progressing back to baseline Exam Narrative Exam Narrative: General: Middle-aged gentleman sitting in bed and in no acute distress, well- developed, well-nourished, appropriately interactive. HEENT: Normocephalic, atraumatic. External ears without defect. Pupils equal, round, and reactive to light. Anicteric sclerae, moist conjunctivae, and no lid lag. Neck: Supple with full range of motion. No lymphadenopathy or thyromegaly. Cardiovascular: Regular rate and rhythm without murmurs, rubs, or gallops appreciated. Pulmonary: Clear to auscultation bilaterally without crackles, wheezes, or rhonchi. Normal respiratory effort with no use of accessory muscles. Abdomen: Soft, obese, bowel sounds present, nontender, nondistended. No hepatosplenomegaly or masses appreciated. Extremities: No clubbing or cyanosis. Unilateral edema of left foot significantly improved. Skin: Circumferential cellulitis of left lower extremity with moderate edema significantly improved since prior exam with scattered hemorrhagic bullae mostly medial superior to malleoli which are also improved. Neurological: Cranial nerves grossly intact. Psychiatric: Normal mood and affect. Alert and oriented to person, place, and time. Discharge Plan Discharge Med Rec/Prescriptions Prescriptions: No Action doxycycline hyclate 100 mg capsule 100 mg PO BID Qty: 8 RF: 0 amoxicillin 500 mg capsule 500 mg PO TID Qty: 12 RF: 0 Discharge Data Primary Care Provider: Robel Britt Attending Provider: Collin Alvarado
== END ==
PROVIDERS: Family Provider Family Medicine; PCP Family Medicine; Visit Provider Family Medicine

== ENCOUNTER → 2019-02-01 13:55 | Outpatient (CLI) | payer SELFPAY ==
[2019-01-21 22:11] VITALS: BMI 39.9
== END ==
PROVIDERS: Family Provider Family Medicine; PCP Family Medicine; Visit Provider Family Medicine
DX: S81.802A Unspecified open wound, left lower leg, initial encounter (principal); L03.116 Cellulitis of left lower limb
CPT/HCPCS: 11042; 99203; 99212

== ENCOUNTER → 2019-02-01 16:00 | Outpatient (CLI) | payer SELFPAY ==
[2019-01-21 22:11] VITALS: BMI 39.9
[2019-02-01 16:50] LABS: Add Manual Diff / Slide Review NO; Basophils Absolute Auto 100 /uL (0-100); Basophils Percent Auto 0.8 % (0-2); Eosinophils Absolute Auto 100 /uL (0-450); Eosinophils Percent Auto 1.2 % (2-4); Hematocrit 39.2 % (41-53); Hemoglobin 13.3 g/dL (13.5-17.5); Lymphocytes Absolute Auto 2200 /uL (1100-4500); Lymphocytes Percent Auto 25.3 % (25-40); Mean Corpuscular HGB Conc 33.9 % (30-36); Mean Corpuscular Hemoglobin 32.7 PG (26-34); Mean Corpuscular Volume 96.5 fL (80-100); Monocytes Absolute Auto 800 /uL (0-900); Monocytes Percent Auto 9.7 % (3-14); Neutrophils Absolute Auto 5400 /uL (1500-7000); Platelet Count 479 X10^3/uL (150-400); Red Blood Cell Count 4.06 X10^6/uL (4.5-5.9); Red Cell Distribution Width 13.9 % (11.6-14.8); White Blood Cell Count 8.6 X10^3/uL (4.5-11.0)
[2019-02-01 17:04] LABS: C-Reactive Protein Quant 1.9 mg/dL (<1.0)
[2019-02-01 17:12] LABS: Erythrocyte Sedimentation Rate 83 MM/HR (0-15)
== END ==
PROVIDERS: PCP Family Medicine; Visit Provider Family Medicine
DX: L03.116 Cellulitis of left lower limb (principal)
CPT/HCPCS: 36415; 85025; 85651; 86140

== ENCOUNTER → 2019-02-08 08:48 | Outpatient (CLI) | payer SELFPAY ==
[2019-01-21 22:11] VITALS: BMI 39.9
[2019-02-08 10:46] LABS: Add Manual Diff / Slide Review NO; Basophils Absolute Auto 100 /uL (0-100); Eosinophils Absolute Auto 100 /uL (0-450); Eosinophils Percent Auto 1.5 % (2-4); Hematocrit 37.8 % (41-53); Hemoglobin 12.6 g/dL (13.5-17.5); Lymphocytes Absolute Auto 2800 /uL (1100-4500); Lymphocytes Percent Auto 34.5 % (25-40); Mean Corpuscular HGB Conc 33.2 % (30-36); Mean Corpuscular Hemoglobin 32.5 PG (26-34); Mean Corpuscular Volume 97.7 fL (80-100); Monocytes Absolute Auto 800 /uL (0-900); Monocytes Percent Auto 10.3 % (3-14); Neutrophils Absolute Auto 4300 /uL (1500-7000); Neutrophils Percent Auto 52.7 % (50-75); Platelet Count 335 X10^3/uL (150-400); Red Blood Cell Count 3.87 X10^6/uL (4.5-5.9); Red Cell Distribution Width 13.7 % (11.6-14.8); White Blood Cell Count 8.1 X10^3/uL (4.5-11.0)
[2019-02-08 11:02] LABS: C-Reactive Protein Quant 0.8 mg/dL (<1.0)
[2019-02-08 11:11] LABS: Erythrocyte Sedimentation Rate 64 MM/HR (0-15)
== END ==
PROVIDERS: Visit Provider Family Medicine
DX: L03.116 Cellulitis of left lower limb (principal); S81.802A Unspecified open wound, left lower leg, initial encounter
CPT/HCPCS: 36415; 85025; 85651; 86140; 97597

== ENCOUNTER → 2019-02-15 13:19 | Outpatient (CLI) | payer SELFPAY ==
[2019-01-21 22:11] VITALS: BMI 39.9
== END ==
PROVIDERS: Visit Provider Family Medicine
DX: Z48.817 Encounter for surgical aftercare following surgery on the skin and subcutaneous tissue (principal)
CPT/HCPCS: 99212; 99213

== ENCOUNTER 2020-09-02 04:24 | Emergency (ER) | payer SELFPAY ==
[2019-01-21 22:11] VITALS: BMI 39.9
[2020-09-02 04:32] VITALS: BP 184/96; PULSE 85; RESP 18; TEMP 36.8; O2SAT 96; BMI 36.9
--- NOTE | 2020-09-02 04:50 | DI.RAD.S_ITS ---
PROCEDURE: XR CHEST 1V INDICATIONS: chest and abdominal pain TECHNIQUE: One view of the chest was acquired. COMPARISON: [facility], CHEST 2 VIEW, 02/08/2009, 2:06. [facility], CHEST 1 VIEW, 09/11/2012, 19:45. [facility], CHEST 1 VIEW, 09/28/2017, 9:08. [facility], XR CHEST 1V, 01/23/2019, 15:58. FINDINGS: Surgical changes and devices: None. Lungs and pleura: Lung volumes are small likely secondary to shallow inspiration. Lungs are clear. Blunting of left costophrenic angle. No pneumothorax. Mediastinum: Mediastinal contours appear normal. Heart size is normal. Bones and chest wall: No suspicious bony lesions. Overlying soft tissues appear unremarkable. IMPRESSION: Blunting of the left costophrenic angle may be secondary to pleural thickening or small pleural effusion. Dictated by: Orquidea Watson M.D. on 09/02/2020 at 9:18 Approved by: Orquidea Watson M.D. on 09/02/2020 at 9:20
--- NOTE | 2020-09-02 04:52 | ED.CHESTPAIN ---
HPI - Chest Pain General Chief Complaint: Chest Pain Stated Complaint: indigestion, heart is racing, skipping beats Time Seen by Provider: 09/02/20 04:41 Source: patient Mode of arrival: Ambulatory Limitations: no limitations History of Present Illness HPI narrative: 55-year-old gentleman with minimal interaction with physicians presents complaining of a severe acid feeling in his mid chest, heart racing and skipping beats and not ?feeling right?. Notes over the last 24 hours he has been a bit ?off? and has a bit of difficulty in being more specific than that. 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 He notes that he was slightly short of breath but he does not describe significant diaphoresis. He states that he was a bit sweaty earlier in the day. When asked to describe where the burning chest pain was he points to his left upper quadrant. He describes no cough, fever, chills, Orthopnea, syncope or any acute neurologic changes. Notes that he has been intermittently more constipated. Reports to concurrent episodes of cellulitis in the left lower extremity about 2 years ago with some chronic edema remaining in that leg. He has never been diagnosed with high blood pressure, reflux or coronary artery disease but has not ever truly seen a physician for any of these things. Family history is significant for mother who in her 50s of cardiac disease. he is a nonsmoker and reports that he drinks 2 beers a day and is wondering if this perhaps may be too much. Related Data Previous Rx's Medication Instructions Recorded amoxicillin 500 mg PO TID #12 cap 01/27/19 doxycycline hyclate 100 mg PO BID #8 cap 01/27/19 Allergies Allergy/AdvReac Type Severity Reaction Status Date / Time No Known Drug Allergies Allergy Verified 01/21/19 19:45 Review of Systems Review of Systems Narrative: Remainder of review of systems including constitutional, ENT, cardiovascular, respiratory, GI, , musculoskeletal, skin, neurologic and psychiatric systems reviewed and are unremarkable except as noted in HPI. Patient History Medical History Cellulitis and abscess of foot (Acute) Mandible fracture (Acute) Social History household members: children Smoking Status: Never smoker alcohol intake: current Smoking Status: Never smoker alcohol intake frequency: 3 or more drinks per day Substance Use Type: does not use Exam Narrative Exam Narrative: General: Healthy appearing, in no acute distress. Well-nourished well-developed HEENT: Moist mucous membranes, normal sclera with reactive pupils, Neck: No JVD, supple Respiratory: Lungs are clear to auscultation, no wheezing no rales no rhonchi. Full and symmetrical air movement Cardiac: Regular rate and rhythm no murmurs no bruits Abdomen: Soft nontender good bowel tones, no flank pain Skin: Warm and dry, no rashes Neurologic: Grossly neurologically intact with no obvious asymmetries or abnormalities Extremities: No trauma, well perfused, bilateral lower extremity edema 2+ on the left 1+ on the right, minor chronic skin changes with discoloration posterior left calf consistent with his prior abscess and cellulitis Psych: Flat affect, Cooperative, Initial Vital Signs Initial Vital Signs: Vital Signs Temperature 98.2 F 09/02/20 04:32 Pulse Rate 85 09/02/20 04:32 Respiratory Rate 18 09/02/20 04:32 Blood Pressure 184/96 H 09/02/20 04:32 Pulse Oximetry 96 09/02/20 04:32 Course Orders Ordered: ED Orders 09/02/20 EKG-12 Lead Routine 09/02/20 04:35 Complete Blood Count AUTO DIFF Stat Comprehensive Metabolic Panel Stat Lipase Stat Magnesium Stat Troponin I Stat 09/02/20 04:50 XR chest 1V Stat Discontinued Medications Sodium Chloride (Normal Saline 0.9%) 1,000 mls @ 1,000 mls/hr IV BOLUS ONE Stop: 09/02/20 06:29 Last Admin: 09/02/20 05:34 Dose: 1,000 mls/hr Documented by: EDU Vital Signs Vital signs: Vital Signs - 8 hr 09/02/20 04:32 09/02/20 05:00 09/02/20 05:01 Temperature 98.2 F Pulse Rate 85 75 76 Respiratory Rate 18 16 20 Blood Pressure 184/96 H 157/75 H Pulse Oximetry 96 96 96 09/02/20 05:30 09/02/20 06:00 09/02/20 06:30 Temperature Pulse Rate 77 72 69 Respiratory Rate 17 15 16 Blood Pressure 155/72 H 156/77 H 149/72 H Pulse Oximetry 96 98 96 MDM - Chest Pain Medical Records Data Attestation: I reviewed the patient's medical records. Lab Data Attestation: I reviewed the patient's lab results. Result diagrams: 09/02/20 04:35 09/02/20 04:35 Labs: Lab Results 09/02/20 09/02/20 Range/Units 04:35 04:35 WBC 8.5 (4.5-11.0) X10^3/uL RBC 4.14 L (4.5-5.9) X10^6/uL Hgb 14.1 (13.5-17.5) g/dL Hct 41.6 (41-53) % MCV 100.4 H (80-100) fL MCH 34.0 (26-34) PG MCHC 33.9 (30-36) % RDW 13.4 (11.6-14.8) % Plt Count 195 (150-400) X10^3/uL Neut % (Auto) 36.5 L (50-75) % Lymph % (Auto) 51.8 H (25-40) % [place] % (Auto) 8.8 (3-14) % Eos % (Auto) 2.4 (2-4) % Baso % (Auto) 0.5 (0-2) % Neut # (Auto) 3100 (4318-1267) /uL Lymph # (Auto) 4400 (3360-5470) /uL [place] # (Auto) 700 (0-900) /uL Eos # (Auto) 200 (0-450) /uL Baso # (Auto) 0 (0-100) /uL Sodium 141 (137-145) mmol/L Potassium 3.6 (3.4-5.1) mmol/L Chloride 105 (98-107) mmol/L Carbon Dioxide 27 (22-32) mmol/L BUN 20 (9-20) mg/dL Creatinine 1.46 H (0.66-1.25) mg/dL Estimated GFR 50.3 L (>60) mL/min BUN/Creatinine Ratio 13.7 (6-22) Glucose 111 H (70-100) mg/dL Calcium 9.1 (8.4-10.2) mg/dL Magnesium 2.2 (1.6-2.3) mg/dL Total Bilirubin 0.6 (0.2-1.3) mg/dL AST 39 (17-59) IU/L ALT < 4 (<50) IU/L Alkaline Phosphatase 130 H (38-126) U/L Troponin I < 0.012 (0.01-0.034) ng/mL Total Protein 8.0 (6.3-8.2) g/dL Albumin 4.2 (3.5-5.0) g/dL Globulin 3.8 (1.7-4.1) g/dL Albumin/Globulin Ratio 1.1 (1.0-2.8) Lipase 143 (23-300) U/L Imaging Data Chest x-ray: Attestation: I personally reviewed and interpreted this imaging study as follows: My Impression: Normal chest x-ray. No infiltrate no cardiomegaly ECG Data Attestation: I personally reviewed and interpreted this ECG as follows: Interpretation: Normal sinus rhythm at a rate of 81 Normal axis, normal intervals No acute ST- T wave changes MDM Narrative Medical decision making narrative: 55-year-old gentleman with complaints of burning epigastric pain and left upper quadrant pain. Creatinine slightly elevated at 1.46. Given a L of fluid. No evidence of acute pancreatitis, significant liver abnormalities, acute coronary syndrome or infection. Most likely explanation at this point is reflux, gastritis could certainly be included in the differential. In discussing findings with the patient, he notes that he does not have insurance he does not have a primary care physician. He asks if he should stop drinking. Given the fact that that is the 3rd time he is now asked during this visit I encouraged him to go ahead and stop drinking Will refer him to our provider access line for help in getting in to see a primary care physician. We discussed the mild renal insufficiency and his high blood pressure. He is safe for home discharge Discharge Plan Departure Patient Disposition: Home Clinical Impression: Acid reflux Qualifiers: Esophagitis presence: esophagitis presence not specified Qualified Code(s): K21.9 - Gastro-esophageal reflux disease without esophagitis BP (high blood pressure) Qualifiers: Hypertension type: unspecified Qualified Code(s): I10 - Essential (primary) hypertension Discharge Date/Time: 09/02/20 06:40 Instructions: DI for High Blood Pressure, DI for Heartburn Activity Restrictions/Additional Instructions: Thank you for coming in today Your workup was reassuring. I do not see signs of significant disease or heart attack. Your kidney function was slightly elevated suggesting perhaps mild dehydration. You were given a L of fluid in the emergency department. This is something that needs to be followed. I am also concerned about your elevated blood pressure again this is something that needs to be followed. We briefly discussed her alcohol intake. Any time that you are wondering if you need to cut back or you might be drinking too much the answer is usually yes. Alcohol can cause irritation to the lining of your stomach and make heartburn worse it can also cause pancreatitis which can give you belly pain and it can complicate high blood pressure. You may find that if you are able to stop drinking that you av much lower blood pressures. I encourage you to follow-up with a primary care physician. You can call our Resource Center at [phone] and asked them to help connect to with the primary care physician. If you feel that you are getting worse please feel free to come back I wish you the best Prescriptions: No Action doxycycline hyclate 100 mg capsule 100 mg PO BID Qty: 8 RF: 0 amoxicillin 500 mg capsule 500 mg PO TID Qty: 12 RF: 0
[2020-09-02 05:00] VITALS: PULSE 75; RESP 16; O2SAT 96
[2020-09-02 05:01] VITALS: BP 157/75; PULSE 76; RESP 20; O2SAT 96
[2020-09-02 05:03] LABS: Add Manual Diff / Slide Review NO; Basophils Absolute Auto 0 /uL (0-100); Basophils Percent Auto 0.5 % (0-2); Eosinophils Absolute Auto 200 /uL (0-450); Eosinophils Percent Auto 2.4 % (2-4); Hematocrit 41.6 % (41-53); Hemoglobin 14.1 g/dL (13.5-17.5); Lymphocytes Absolute Auto 4400 /uL (1100-4500); Lymphocytes Percent Auto 51.8 % (25-40); Mean Corpuscular HGB Conc 33.9 % (30-36); Mean Corpuscular Volume 100.4 fL (80-100); Monocytes Absolute Auto 700 /uL (0-900); Monocytes Percent Auto 8.8 % (3-14); Neutrophils Absolute Auto 3100 /uL (1500-7000); Neutrophils Percent Auto 36.5 % (50-75); Platelet Count 195 X10^3/uL (150-400); Red Blood Cell Count 4.14 X10^6/uL (4.5-5.9); Red Cell Distribution Width 13.4 % (11.6-14.8); White Blood Cell Count 8.5 X10^3/uL (4.5-11.0)
[2020-09-02 05:08] LABS: Albumin 4.2 g/dL (3.5-5.0); Albumin Globulin Ratio 1.1 (1.0-2.8); Alkaline Phosphatase 130 U/L (38-126); Aspartate Aminotransferase 39 IU/L (17-59); BUN Creatinine Ratio 13.7 (6-22); Bilirubin Total 0.6 mg/dL (0.2-1.3); Blood Urea Nitrogen 20 mg/dL (9-20); Calcium 9.1 mg/dL (8.4-10.2); Carbon Dioxide 27 mmol/L (22-32); Chloride 105 mmol/L (98-107); Estimated Glomerular Filt Rate 50.3 mL/min (>60); Globulin 3.8 g/dL (1.7-4.1); Glucose 111 mg/dL (70-100); HEMOLYSIS 20 (0-50); Lipase 143 U/L (23-300); Magnesium 2.2 mg/dL (1.6-2.3); Potassium 3.6 mmol/L (3.4-5.1); Sodium 141 mmol/L (137-145)
[2020-09-02 05:14] LABS: Alanine Aminotransferase < 4 IU/L (<50)
[2020-09-02 05:19] LABS: Troponin I < 0.012 ng/mL (0.01-0.034)
[2020-09-02 05:30] VITALS: BP 155/72; PULSE 77; RESP 17; O2SAT 96
[2020-09-02] MEDS: SODIUM CHLORIDE 0.9% 1,000 ML 1000 ML IV (05:34)
[2020-09-02 06:00] VITALS: BP 156/77; PULSE 72; RESP 15; O2SAT 98
[2020-09-02 06:30] VITALS: BP 149/72; PULSE 69; RESP 16; O2SAT 96
--- NOTE | 2020-10-12 05:53 | PC.NURSE ---
the NS fluid bolus was stopped at 0635 with 1000ml infused.
== END 2020-09-02 06:40 | disposition home or self-care (01) ==
PROVIDERS: Emergency Provider Emergency Medicine
DX: K21.9 Gastro-esophageal reflux disease without esophagitis (principal); I10 Essential (primary) hypertension; R79.89 Other specified abnormal findings of blood chemistry; R07.89 Other chest pain
CPT/HCPCS: 36415; 71045; 80053; 83690; 83735; 84484; 85025; 93005; 96360; 99284

== ENCOUNTER 2021-03-06 11:08 | Emergency (ER) | payer SELFPAY ==
[2019-01-21 22:11] VITALS: BMI 39.9
[2021-03-06] VITALS (10 sets, daily range): BP systolic 141–179; BP diastolic 57–94; PULSE 63–87; RESP 16–20; TEMP 36.6; O2SAT 95–99; BMI 38.2
--- NOTE | 2021-03-06 11:23 | DI.RAD.S_ITS ---
PROCEDURE: XR CHEST 1V INDICATIONS: chest pain TECHNIQUE: One view of the chest was acquired. COMPARISON: [facility], CR, XR CHEST 1V, 09/02/2020, 4:53. [facility], CR, XR CHEST 1V, 01/23/2019, 15:58. FINDINGS: Surgical changes and devices: None. Lungs and pleura: Lungs are clear. No pleural effusions or pneumothorax. Mediastinum: Mediastinal contours appear normal. Heart size is normal. Bones and chest wall: No suspicious bony lesions. Overlying soft tissues appear unremarkable. IMPRESSION: Normal for age, source of current chest pain symptoms is not seen. Dictated by: Bucky Keith M.D. on 03/06/2021 at 11:53 Approved by: Bucky Keith M.D. on 03/06/2021 at 11:53
[2021-03-06 11:50] LABS: INR 1.1 (0.9-1.3); Prothrombin Time 12.1 SECONDS (10.1-12.7)
[2021-03-06 11:52] LABS: Add Manual Diff / Slide Review NO; Basophils Absolute Auto 0 /uL (0-100); Basophils Percent Auto 0.7 % (0-2); Eosinophils Absolute Auto 0 /uL (0-450); Eosinophils Percent Auto 0.7 % (2-4); Hematocrit 40.2 % (41-53); Hemoglobin 13.5 g/dL (13.5-17.5); Lymphocytes Absolute Auto 1200 /uL (1100-4500); Lymphocytes Percent Auto 19.8 % (25-40); Mean Corpuscular HGB Conc 33.7 % (30-36); Mean Corpuscular Hemoglobin 33.4 PG (26-34); Mean Corpuscular Volume 99.3 fL (80-100); Monocytes Absolute Auto 600 /uL (0-900); Monocytes Percent Auto 9.3 % (3-14); Neutrophils Absolute Auto 4300 /uL (1500-7000); Neutrophils Percent Auto 69.5 % (50-75); PTT Partial Thromboplastin Tim 28 SECONDS (26.4-36.2); Platelet Count 173 X10^3/uL (150-400); Red Blood Cell Count 4.05 X10^6/uL (4.5-5.9); Red Cell Distribution Width 13.7 % (11.6-14.8); White Blood Cell Count 6.2 X10^3/uL (4.5-11.0)
[2021-03-06 11:54] LABS: Alanine Aminotransferase 5 IU/L (<50); Albumin 4.1 g/dL (3.5-5.0); Albumin Globulin Ratio 1.3 (1.0-2.8); Alkaline Phosphatase 92 U/L (38-126); Aspartate Aminotransferase 58 IU/L (17-59); Bilirubin Total 1.2 mg/dL (0.2-1.3); Blood Urea Nitrogen 14 mg/dL (9-20); Calcium 8.9 mg/dL (8.4-10.2); Carbon Dioxide 26 mmol/L (22-32); Chloride 104 mmol/L (98-107); Creatine Kinase 776 U/L (55-170); Estimated Glomerular Filt Rate > 60.0 mL/min (>60); Globulin 3.2 g/dL (1.7-4.1); Glucose 129 mg/dL (70-100); Lipase 54 U/L (23-300); Sodium 137 mmol/L (137-145); Total Protein 7.3 g/dL (6.3-8.2)
[2021-03-06 12:06] LABS: NT-proBNP (BNP-Adult 18+) 226 pg/mL (<125); Troponin I < 0.012 ng/mL (0.01-0.034)
[2021-03-06 12:09] LABS: Creatine Kinase MB 7.57 ng/mL (<2.37); HEMOLYSIS 15 (0-50)
--- NOTE | 2021-03-06 12:41 | ED_ITS ---
HPI - Chest Pain General Chief Complaint: Chest Pain Stated Complaint: blood pressure extremely high, palpitations Time Seen by Provider: 03/06/21 12:41 Source: patient Mode of arrival: Ambulatory Limitations: no limitations History of Present Illness HPI narrative: Patient is a 55-year-old male who presents with hypertension and palpitations. He states he has had intermittent palpitations ongoing for some time he cannot give me a time frame. He apparently has blood pressure checked at work today and he had a systolic of 180 and was sent to the ED. He felt a little lightheaded but now is overall feeling better. He did not pass out. He currently has no chest pain, he is not dizzy or lightheaded. He states that he feels like his heart beats irregularly often. He has no nausea vomiting or shortness of breath. He denies any orthopnea. He does admit to drinking 224 oz beers nightly. Related Data Previous Rx's Medication Instructions Recorded amoxicillin 500 mg PO TID #12 cap 01/27/19 doxycycline hyclate 100 mg PO BID #8 cap 01/27/19 Allergies Allergy/AdvReac Type Severity Reaction Status Date / Time No Known Drug Allergies Allergy Verified 01/21/19 19:45 Review of Systems Review of Systems ROS Unobtainable: All systems reviewed & are unremarkable except as noted in HPI and below Constitutional Constitutional: Denies chills, Denies fever(s), Denies lethargy and Denies weakness Cardiovascular Cardiovascular: Reports as per HPI, Reports palpitations, Denies dyspnea and Denies dyspnea on exertion Respiratory Respiratory: Denies cough, Denies dyspnea, Denies dyspnea on exertion and Denies wheezing Musculoskeletal Musculoskeletal: Denies back pain and Denies myalgias Integumentary/Breasts Skin/Breast: Denies pruritus, Denies erythema, Denies rash and Denies wounds Neurologic Neurologic: Denies confusion and Denies weakness Psychiatric Psychiatric: Denies confusion Endocrine Endocrine: Reports palpitations Allergic/Immunologic Allergic/Immunologic: Denies wheezing Patient History Medical History (Updated 03/06/21 @ 13:10 by Milli Jara DO) Cellulitis and abscess of foot Mandible fracture Social History household members: children Smoking Status: Never smoker alcohol intake: current Smoking Status: Never smoker alcohol intake frequency: 3 or more drinks per day Alcohol type: beer Substance Use Type: does not use Exam Initial Vital Signs Initial Vital Signs: Vital Signs Pulse Rate 87 03/06/21 11:14 Pulse Oximetry 99 03/06/21 11:14 GENERAL: Alert 55-year-old male and in no acute distress. HEENT: Head atraumatic,EOMI, pupils reactive, face symmetric, moist mucous membranes CARDIOVASCULAR: Regular rate and rhythm without murmurs, rubs or gallops. RESPIRATORY: Breath sounds equal bilaterally, no wheezes rales or rhonchi. ABDOMEN: Soft, nontender. Normoactive bowel sounds all 4 quadrants. No guarding or rebound. EXTREMITIES: Normal range of motion, no clubbing. Bilateral nonpitting edema. Neurovascularly intact NEUROLOGICAL: Alert and oriented x4.Normal gait and speech. Cranial nerves II through XII grossly intact. SKIN: Warm, dry, no laceration, no petechiae, no rashes or lesions. Course Orders Ordered: ED Orders 03/06/21 11:23 XR chest 1V Stat Complete Blood Count AUTO DIFF Stat Comprehensive Metabolic Panel Stat Lipase Stat NT-proBNP (BNP-Adult 18+) Stat Partial Thromboplastin Time Stat Prothrombin Time INR Stat Troponin & CK Cardiac Panel Stat EKG-12 Lead Stat Vital Signs Vital signs: Vital Signs - 8 hr 03/06/21 11:14 03/06/21 11:15 03/06/21 11:20 Temperature 97.8 F Pulse Rate 87 86 78 Respiratory Rate 16 Blood Pressure 179/94 H 179/94 H Pulse Oximetry 99 98 97 03/06/21 11:30 03/06/21 11:31 03/06/21 12:00 Temperature Pulse Rate 74 72 70 Respiratory Rate 16 Blood Pressure 163/76 H Pulse Oximetry 97 98 97 03/06/21 12:01 03/06/21 12:30 03/06/21 12:31 Temperature Pulse Rate 71 66 67 Respiratory Rate 18 18 Blood Pressure 158/73 H 141/67 H Pulse Oximetry 96 95 96 03/06/21 13:15 Temperature Pulse Rate 63 Respiratory Rate 20 Blood Pressure 141/57 H Pulse Oximetry MDM - Chest Pain Lab Data Attestation: I reviewed the patient's lab results. Result diagrams: 03/06/21 11:23 03/06/21 11:23 Labs: Lab Results 03/06/21 03/06/21 03/06/21 Range/Units 11:23 11:23 11:23 WBC 6.2 (4.5-11.0) X10^3/uL RBC 4.05 L (4.5-5.9) X10^6/uL Hgb 13.5 (13.5-17.5) g/dL Hct 40.2 L (41-53) % MCV 99.3 (80-100) fL MCH 33.4 (26-34) PG MCHC 33.7 (30-36) % RDW 13.7 (11.6-14.8) % Plt Count 173 (150-400) X10^3/uL Neut % (Auto) 69.5 (50-75) % Lymph % (Auto) 19.8 L (25-40) % [place] % (Auto) 9.3 (3-14) % Eos % (Auto) 0.7 L (2-4) % Baso % (Auto) 0.7 (0-2) % Neut # (Auto) 4300 (6615-8727) /uL Lymph # (Auto) 1200 (2550-6666) /uL [place] # (Auto) 600 (0-900) /uL Eos # (Auto) 0 (0-450) /uL Baso # (Auto) 0 (0-100) /uL PT 12.1 (10.1-12.7) SECONDS INR 1.1 (0.9-1.3) APTT 28 (26.4-36.2) SECONDS Sodium 137 (137-145) mmol/L Potassium 4.0 (3.4-5.1) mmol/L Chloride 104 (98-107) mmol/L Carbon Dioxide 26 (22-32) mmol/L BUN 14 (9-20) mg/dL Creatinine 1.00 (0.66-1.25) mg/dL Estimated GFR > 60.0 (>60) mL/min BUN/Creatinine Ratio 14.0 (6-22) Glucose 129 H (70-100) mg/dL Calcium 8.9 (8.4-10.2) mg/dL Total Bilirubin 1.2 (0.2-1.3) mg/dL AST 58 (17-59) IU/L ALT 5 (<50) IU/L Alkaline Phosphatase 92 (38-126) U/L Total Creatine Kinase 776 H (55-170) U/L CK-MB (CK-2) 7.57 H (<2.37) ng/mL CK-MB (CK-2) Rel Index 1.0 L (1.5-5.0) % Troponin I < 0.012 (0.01-0.034) ng/mL NT-Pro-B Natriuret Pep 226 H (<125) pg/mL Total Protein 7.3 (6.3-8.2) g/dL Albumin 4.1 (3.5-5.0) g/dL Globulin 3.2 (1.7-4.1) g/dL Albumin/Globulin Ratio 1.3 (1.0-2.8) Lipase 54 (23-300) U/L Imaging Data Chest x-ray: Radiologist's Impression: PROCEDURE: XR CHEST 1V INDICATIONS: chest pain TECHNIQUE: One view of the chest was acquired. COMPARISON: [facility], CR, XR CHEST 1V, 09/02/2020, 4:53. [facility], CR, XR CHEST 1V, 01/23/2019, 15:58. FINDINGS: Surgical changes and devices: None. Lungs and pleura: Lungs are clear. No pleural effusions or pneumothorax. Mediastinum: Mediastinal contours appear normal. Heart size is normal. Bones and chest wall: No suspicious bony lesions. Overlying soft tissues appear unremarkable. IMPRESSION: Normal for age, source of current chest pain symptoms is not seen. Dictated by: Bucky Keith M.D. on 03/06/2021 at 11:53 ECG Data Attestation: I personally reviewed and interpreted this ECG as follows: Prior ECG tracings: available for review Interpretation: Normal sinus rhythm rate 77 p.r. interval 178 QRS [address] changes MDM Narrative Medical decision making narrative: Patient blood work is overall reassuring. He has not actually chest pain is intermittent palpitations and his blood pressure improved without any intervention. She has no sign of end-organ damage. CPK is mildly elevated. Blood pressure daily and create a log and follow-up with a primary care provider. We discussed decreasing alcohol use as well. Discharge Plan Departure Patient Disposition: Home Clinical Impression: Heart palpitations Instructions: DI for Palpitations Activity Restrictions/Additional Instructions: *You have been diagnosed with palpitations *What to do: Please get a blood pressure cuff and monitor your blood pressure once a day either in the morning or night and record it. You may also need something called a Holter monitor Her primary care provider will be able to help with *Continue to take medications as directed *Follow up with your primary care provider in 2-3 days *Return to ER if you should have increasing chest pain dizziness palpitations shortness of breath or any new, worsening or concerning symptoms Prescriptions: No Action doxycycline hyclate 100 mg capsule 100 mg PO BID Qty: 8 RF: 0 amoxicillin 500 mg capsule 500 mg PO TID Qty: 12 RF: 0 Referrals: [facility] [Outside]
== END 2021-03-06 13:28 | disposition home or self-care (01) ==
PROVIDERS: Emergency Provider Emergency Medicine
DX: R00.2 Palpitations (principal); I10 Essential (primary) hypertension
CPT/HCPCS: 36415; 71045; 80053; 82550; 82553; 83690; 83880; 84484; 85025; 85610; 85730; 93005; 93010; 99283; 99284